=== PATIENT | male | born 1960 | race African-American/Black ===

== ENCOUNTER 2017-01-11 11:11 | Emergency (ER) ==
[2017-01-11 11:18] VITALS: BP 172/113; TEMP 98.9; BMI 30.4
--- NOTE | 2017-01-11 12:20 | ED.PDOC ---
General ED Provider: Dr. OSCAR YATES Chief Complaint: Extremity Swelling/Pain Stated Complaint: LEFT KNEE PAIN Time Seen by Physician: 11:12 Information Source: Patient Exam Limitations: No limitations [facility] Nursing and Triage Documentation Reviewed and Agree: Yes Musculoskeletal Complaint Exam - Lower Extremity Complaint/Exam Location of Pain: Reports: Left, Knee Mechanism of Injury: Reports: Trauma Onset/Duration: 1 DAY Symptoms Are: Still present Initial Severity: Moderate Current Severity: Mild Location: Reports: Discrete Character: Reports: Aching Alleviating: Reports: Rest, Position Aggravating: Reports: Movement Able to Bear Weight: Yes Associated Signs and Symptoms: Denies: Swelling, Redness, Bruising, Fever, Weakness, Numbness, Tingling DVT Risk Factors: Reports: None Septic Arthritis Risk Factors: Reports: None Related Surgical History: Reports: None Differential Diagnoses: Fracture, Strain, Sprain Review of Systems - Review Of Systems Constitutional: Reports: No symptoms Eyes: Reports: No symptoms Ears, Nose, Mouth, Throat: Reports: No symptoms Respiratory: Reports: No symptoms Cardiac: Reports: No symptoms GI: Reports: No symptoms : Reports: No symptoms Musculoskeletal: Reports: Joint pain (LEFT KNEE ) Skin: Reports: No symptoms Neurological: Reports: No symptoms Endocrine: Reports: No symptoms Hematologic/Lymphatic: Reports: No symptoms All Other Systems: Reviewed and Negative Past Medical History - Past Medical History Previously Healthy: No Endocrine: Reports: Dyslipidemia Cardiovascular: Reports: Hypertension Respiratory: Reports: COPD, Asthma Hematological: Reports: None Gastrointestinal: Reports: None Genitourinary: Reports: None Neuro/Psych: Reports: Migraine, Anxiety, Depression Musculoskeletal: Reports: Arthritis, Back Pain, Joint Pain (shoulder pain Rotator cuff ) Cancer: Reports: None Other Pertinent Past Medical History: sleep apnea - Surgical History General Surgical History: Reports: Appendectomy - Family History Family History: Reports: Hypertension - Social History Smoking Status: Current every day smoker, Light tobacco smoker Hx Substance Use: No Alcohol Screening: Occasionally Physical Exam - Physical Exam Appearance: Well-appearing, No pain distress, Well-nourished Eyes: TOM, EOMI, Conjunctiva clear ENT: Ears normal, Nose normal, Oropharynx normal Respiratory: Airway patent, Breath sounds clear, Breath sounds equal, Respirations nonlabored Cardiovascular: RRR, Pulses normal, No rub, No murmur GI/: Soft, Nontender, No masses, Bowel sounds normal, No Organomegaly Musculoskeletal: Normal strength, ROM intact, No edema, No calf tenderness Skin: Warm, Dry, Normal color Neurological: Sensation intact, Motor intact, Reflexes intact, Cranial nerves intact, Alert, Oriented Psychiatric: Affect appropriate, Mood appropriate Interpretation - Radiology Interpretation Radiology Interpretation By: Radiologist Critical Care Note - Critical Care Note Total Time (mins): 0 Course - Course Orders, Labs, Meds: Orders Category Date Time Status KNEE, LEFT 4 VIEWS Stat RADS 01/11/17 11:34 Taken Vital Signs: Temp Pulse Resp BP Pulse Ox 01/11/17 11:12 98.9 F 108 H 20 172/113 H 98 Departure - Departure Time of Disposition: 12:22 Disposition: HOME SELF-CARE Discharge Problem: Knee pain, acute Qualifiers: Laterality: left Qualifier Code: (M25.562) Pain in left knee Instructions: Knee Pain (ED), Arthralgia (ED) Condition: Good Pt referred to PMD for follow-up: No Additional Instructions: Please call your Family Physician as soon as possible to schedule a follow-up appointment. Allergies/Adverse Reactions: Allergies onion Allergy (Severe, Verified 01/11/17 11:19) Anaphylaxis Coconut Adverse Reaction (Verified 01/11/17 11:19) venom-honey bee [bee venom (honey bee)] Adverse Reaction (Verified 01/11/17 11: 19) venom-wasp [wasp venom] Adverse Reaction (Verified 01/11/17 11:19) Home Medications: Ambulatory Orders Albuterol Sulfate 0.083% Neb [Albuterol 0.083% Neb] 1 vial NEB RTQ6H 09/26/15 Atorvastatin Calcium [Lipitor] 20 mg PO BEDTIME 09/26/15 Cyclobenzaprine HCl [Flexeril] 10 mg PO TID 09/26/15 Metoprolol Tartrate 50 mg PO BID 09/26/15 Sumatriptan Succinate [Imitrex] 50 mg PO DAILY PRN 12/17/15 Gabapentin [Neurontin] 200 mg PO TID 05/08/16 Fluticasone Propionate 110 Mcg [Flovent Hfa 110 Mcg] 1 puff IH BID 07/24/16 Losartan Potassium 100 mg PO DAILY #30 tablet 07/26/16 Hydrocodone/Acetaminophen [[place] 7.5-325 Tablet] 1 tab PO Q6HR PRN #12 tablet Potassium Chloride 20 meq PO DAILY 08/24/16 Hydrocodone/Acetaminophen [[place] 5-325 Tablet] 1 each PO Q6HR PRN #4 tablet
--- NOTE | 2017-01-11 12:34 | DI ---
Examination: Four radiographic images of the left knee. Comparison: None available. Reason for study: Pain. FINDINGS: No acute fracture or dislocation. The joint space is relatively well maintained. There is no large joint effusion. Mild degenerative disease with patellar osteophytes. Impression: No acute fracture or dislocation is seen within the left knee.
== END 2017-01-11 12:41 | disposition home or self-care (01) ==
LOC: ED 11:11
DX: M25.562 Pain in left knee (principal); F17.210 Nicotine dependence, cigarettes, uncomplicated
CPT/HCPCS: 99282

== ENCOUNTER 2017-02-07 01:00 | Emergency (ER) | payer OTHER ==
[2017-02-07] MEDS ORDERED: DUONEB NEB STA (01:03)
[2017-02-07] MEDS ORDERED: SOLU-MEDROL 125 MG IVP STA (01:03)
--- NOTE | 2017-02-07 01:07 | ED.PDOC ---
General ED Provider: Dr. MORAIMA DUTTA Stated Complaint: Patient brought from the group home, for the shortness of breath, wheezing, Time Seen by Physician: 01:04 Nursing and Triage Documentation Reviewed and Agree: Yes Respiratory Complaint Exam - Asthma Complaint/Exam Symptoms Are: Still present Timing: Constant Initial Severity: Severe Current Severity: Moderate Character: Reports: Wheezing, Non-productive cough Aggravating: Reports: Weather change, URI, Allergens Alleviating: Reports: None Associated Signs and Symptoms: Reports: SOA. Denies: Fever, Chest pain, Edema, Calf pain, URI, Sinus infection, Rapid breathing, Labored breathing Related History: Reports: Similar episode Related Surgical History: Reports: None Status Asthmaticus Risk Factors: Reports: Rx non-compliance, Prior ICU admit, Prior Intubation Current Asthma Medication Usage: Yes (proair) Recent Antibiotics: No Respiratory Distress: Severe Accessory Muscle Use: Yes Retractions: Nasal Flaring Diminished Breath Sounds: No Prolonged Expiratory Phase: Yes Unable to Speak Full Sentences: Yes Fatigue Present: No Differential Diagnoses: Acute Asthma, Pneumonia Review of Systems - Review Of Systems Constitutional: Reports: Malaise, Weakness Eyes: Reports: No symptoms Ears, Nose, Mouth, Throat: Reports: No symptoms Respiratory: Reports: Cough, Short of air, Wheezing Cardiac: Reports: No symptoms GI: Reports: No symptoms : Reports: No symptoms Musculoskeletal: Reports: No symptoms Skin: Reports: No symptoms Neurological: Reports: No symptoms Endocrine: Reports: No symptoms Hematologic/Lymphatic: Reports: No symptoms All Other Systems: Reviewed and Negative Past Medical History - Past Medical History Previously Healthy: No Endocrine: Reports: Dyslipidemia Cardiovascular: Reports: Hypertension Respiratory: Reports: COPD, Asthma Hematological: Reports: None Gastrointestinal: Reports: None Genitourinary: Reports: None Neuro/Psych: Reports: Migraine, Anxiety, Depression Musculoskeletal: Reports: Arthritis, Back Pain, Joint Pain (shoulder pain Rotator cuff ) Cancer: Reports: None Other Pertinent Past Medical History: sleep apnea - Surgical History General Surgical History: Reports: Appendectomy - Family History Family History: Reports: Hypertension - Social History Smoking Status: Current every day smoker, Light tobacco smoker Hx Substance Use: No Alcohol Screening: Occasionally Physical Exam - Physical Exam Appearance: Ill-appearing, Obese Eyes: TOM, EOMI, Conjunctiva clear ENT: Ears normal, Nose normal, Oropharynx normal Respiratory: Airway patent, Breath sounds diminished, Crackles, Wheezes Cardiovascular: RRR, Pulses normal, No rub, No murmur GI/: Soft, Nontender, No masses, Bowel sounds normal, No Organomegaly Musculoskeletal: Normal strength, ROM intact, No edema, No calf tenderness Skin: Warm, Dry, Normal color Neurological: Sensation intact, Motor intact, Reflexes intact, Cranial nerves intact, Alert, Oriented Psychiatric: Affect appropriate, Mood appropriate Critical Care Note - Critical Care Note Total Time (mins): 0 Course - Course Orders, Labs, Meds: Orders Category Date Time Status NEBULIZER TREATMENT Stat CARDIO 02/07/17 01:03 Completed B-TYPE NATRIURETIC PEPTIDE Stat LAB 02/07/17 01:03 Ordered CBC W/ AUTO DIFF Stat LAB 02/07/17 01:03 Ordered COMPREHENSIVE METABOLIC PANEL Stat LAB 02/07/17 01:03 Ordered CREATINE KINASE Stat LAB 02/07/17 01:03 Ordered D-DIMER Stat LAB 02/07/17 01:03 Ordered TROPONIN I Stat LAB 02/07/17 01:03 Ordered Ipratropium/Albuterol Neb [Duoneb] MEDS 02/07/17 01:03 Discontinued 1 vial NEB ONCE STA Methylprednisolone Sod Succ/Pf [Solu-Medrol 125 mg] MEDS 02/07/17 01:03 Discontinued 125 mg IVP ONCE STA CHEST, 1V AP ONLY Stat RADS 02/07/17 01:03 Taken Medications Discontinued Medications Generic Name Dose Route Start Last Admin Trade Name Freq PRN Reason Stop Dose Admin Albuterol/Ipratropium 1 vial 02/07/17 01:03 02/07/17 01:14 Duoneb NEB 02/07/17 01:04 1 vial ONCE STA Administration Methylprednisolone Sodium Succinate 125 mg 02/07/17 01:03 02/07/17 01:11 Solu-Medrol 125 Mg IVP 02/07/17 01:04 125 mg ONCE STA Administration Vital Signs: Temp Pulse Resp BP Pulse Ox 02/07/17 01:01 97.2 F L 100 H 36 H 137/101 H 84 L Departure - Departure Time of Disposition: 02:20 Disposition: HOME SELF-CARE Discharge Problem: Asthma exacerbation Instructions: Asthma (ED) Condition: Stable Pt referred to PMD for follow-up: Yes Additional Instructions: CONTINUE PROVENTIL PRN NO SMOKING. Prescriptions: Cephalexin [Keflex] 500 mg PO Q12HR #20 capsule Methylprednisolone [Medrol Dosepak] 4 mg PO DIRECTED #1 pkg Allergies/Adverse Reactions: Allergies onion Allergy (Severe, Verified 02/07/17 01:11) Anaphylaxis Coconut Adverse Reaction (Verified 02/07/17 01:11) venom-honey bee [bee venom (honey bee)] Adverse Reaction (Verified 02/07/17 01: 11) venom-wasp [wasp venom] Adverse Reaction (Verified 02/07/17 01:11) Home Medications: Ambulatory Orders Albuterol Sulfate 0.083% Neb [Albuterol 0.083% Neb] 1 vial NEB RTQ6H 09/26/15 Atorvastatin Calcium [Lipitor] 20 mg PO BEDTIME 09/26/15 Cyclobenzaprine HCl [Flexeril] 10 mg PO TID 09/26/15 Metoprolol Tartrate 50 mg PO BID 09/26/15 Sumatriptan Succinate [Imitrex] 50 mg PO DAILY PRN 12/17/15 Gabapentin [Neurontin] 200 mg PO TID 05/08/16 Fluticasone Propionate 110 Mcg [Flovent Hfa 110 Mcg] 1 puff IH BID 07/24/16 Losartan Potassium 100 mg PO DAILY #30 tablet 07/26/16 Hydrocodone/Acetaminophen [[place] 7.5-325 Tablet] 1 tab PO Q6HR PRN #12 tablet Potassium Chloride 20 meq PO DAILY 08/24/16 Hydrocodone/Acetaminophen [[place] 5-325 Tablet] 1 each PO Q6HR PRN #4 tablet Cephalexin [Keflex] 500 mg PO Q12HR #20 capsule 02/07/17 Methylprednisolone [Medrol Dosepak] 4 mg PO DIRECTED #1 pkg 02/07/17 Disposition Discussed With: Patient
[2017-02-07 01:12] VITALS: BP 137/101; TEMP 97.2; BMI 33.2
[2017-02-07 01:37] LABS: BASOPHILS # (AUTO) 0.1 K/uL (0-0.2); BASOPHILS % (AUTO) 0.7 % (0.0-3.0); EOSINOPHILS # (AUTO) 0.3 K/ul (0.0-0.7); EOSINOPHILS % (AUTO) 3.5 % (0.0-7.0); HEMATOCRIT 41.3 % (42.0-52.0); HEMOGLOBIN 14.3 g/dl (14.0-18.0); IMMATURE GRANULOCYTE % (AUTO) 0.7 % (0.0-5.0); LYMPHOCYTES % (AUTO) 44.1 (10.0-50.0); MEAN CORPUSCULAR HGB CONC 34.6 (31.8-35.4); MEAN CORPUSCULAR VOLUME 98.3 fl (80.0-94.0); MONOCYTES # (AUTO) 1.4 K/uL (0.4-2.0); MONOCYTES % (AUTO) 15.1 (0-10); NEUTROPHILS # (AUTO) 3.2 K/ul (2.0-6.9); NEUTROPHILS % (AUTO) 35.9; PLATELET COUNT 238 10^3/uL (140-440); WHITE BLOOD COUNT 8.97 K/ul (4.2-10.2)
[2017-02-07 02:08] LABS: ALANINE AMINOTRANSFERASE 48 U/L (12-78); ALBUMIN 3.8 g/dL (3.4-5.0); ALBUMIN/GLOBULIN RATIO 1.09; ALKALINE PHOSPHATASE 77 U/L (50-136); ANION GAP 15.1; ASPARTATE AMINO TRANSFERASE 35 U/L (15-37); BILIRUBIN,TOTAL 0.38 mg/dL (0.00-1.20); BLOOD UREA NITROGEN 17 mg/dL (7-18); BUN/CREATININE RATIO 13.38; CALCIUM 9.3 mg/dL (8.2-10.2); CARBON DIOXIDE 28 mmol/L (21-32); CHLORIDE 102 mmol/L (98-107); CREATINE KINASE 457 U/L; CREATINE KINASE MB 1.5 ng/ml (0.0-3.6); CREATININE 1.27 mg/dL (0.60-1.10); GLUCOSE 202 mg/dL (70-100); POTASSIUM 3.1 mmol/L (3.5-5.1); SODIUM 142 mmol/L (136-145); TOTAL PROTEIN 7.3 g/dL (6.4-8.2)
[2017-02-07] MEDS ORDERED: K-DUR PO STA (02:32)
--- NOTE | 2017-02-07 07:08 | DI ---
EXAM: Chest one view HISTORY: Shortness of breath COMPARISON: 07/24/2016 TECHNIQUE: Single view of the chest was performed FINDINGS: Mild left basilar subsegmental atelectasis. No airspace consolidation. There is no pleu ral effusion or pneumothorax. The heart is normal in size. The mediastinal contour is normal. The re are no acute abnormalities of the bones. IMPRESSION: Mild left basilar subsegmental atelectasis. Otherwise, no acute cardiopulmonary proces s.
== END 2017-02-07 02:41 | disposition home or self-care (01) ==
LOC: ED 01:00
DX: J45.901 Unspecified asthma with (acute) exacerbation (principal); F17.210 Nicotine dependence, cigarettes, uncomplicated; Z79.899 Other long term (current) drug therapy
CPT/HCPCS: 36415; 80053; 82550; 82553; 83880; 84484; 85025; 85379; 93005; 93010; 94640; 96375; 99284

== ENCOUNTER 2017-03-06 13:20 | Outpatient (CLI) ==
[2013-05-24 11:45] VITALS: TEMP 98.1
[2017-03-06 14:13] LABS: ALBUMIN 4.1 g/dL (3.4-5.0); ANION GAP 14.6; BILIRUBIN,DIRECT 0.31 mg/dL (0.00-0.30); BILIRUBIN,TOTAL 0.8 mg/dL (0.00-1.20); CALCIUM 9.8 mg/dL (8.2-10.2); CREATININE 1.25 mg/dL (0.60-1.10); POTASSIUM 3.6 mmol/L (3.5-5.1); TOTAL PROTEIN 7.8 g/dL (6.4-8.2)
== END 2017-03-06 13:21 | disposition home or self-care (01) ==
LOC: LAB 13:20
PROVIDERS: ATTEND Pain Medicine Interventional Pain Medicine
DX: Z51.81 Encounter for therapeutic drug level monitoring (principal); Z79.891 Long term (current) use of opiate analgesic; F19.20 Other psychoactive substance dependence, uncomplicated; S83.231D Complex tear of medial meniscus, current injury, right knee, subsequent encounter; M25.561 Pain in right knee
CPT/HCPCS: 36415; 80048; 80076

== ENCOUNTER 2017-03-24 07:20 | Outpatient (CLI) ==
[2013-05-24 11:45] VITALS: TEMP 98.1
--- NOTE | 2017-03-24 10:58 | CT ---
EXAM: CT of the soft tissue neck with contrast History: Palpable abnormality at the base of the skull. Technique: Multiplanar CT images through the soft tissue neck were obtained following administratio n of IV contrast Findings: Orbits are intact. The visualized intracranial contents demonstrate no acute findings. No parotid inflammation. No parotid masses. Submandibular glands are not inflamed. No peritonsill ar inflammation. Mild mucosal thickening of the left maxillary sinus. Mastoid air cells are genera lly clear. No acute osseous abnormalities. Epiglottis is not thickened. No discrete thyroid nodul es identified. The visualized upper lungs are free of consolidation. There is paraseptal emphysema seen within the right lung apex. No abnormalities are seen in the region of interest of the posterior neck. Small scattered neck lym ph nodes. Impression: No acute or significant findings.
== END 2017-03-24 07:21 | disposition home or self-care (01) ==
LOC: RAD 07:20
PROVIDERS: ATTEND Nurse Practitioner Family
DX: R22.1 Localized swelling, mass and lump, neck (principal)

== ENCOUNTER 2017-03-25 11:25 | Emergency (ER) ==
[2017-03-25 11:32] VITALS: BP 113/77; TEMP 98.8; BMI 30.7
[2017-03-25] MEDS ORDERED: DUONEB NEB STA (12:11)
[2017-03-25] MEDS ORDERED: TORADOL IM STA (12:11)
--- NOTE | 2017-03-25 12:52 | ED.PDOC ---
General ED Provider: Dr. LUCIO SHEPPARD Chief Complaint: Non-specific Complaint Stated Complaint: patient states he had surgery on left knee on monday. patient c/o swelling to right lower leg. patient states they told him it would be swollen for a couple days. patient states he is waiting for a call back from his surgeon. Time Seen by Physician: 11:45 Mode of Arrival: Walk-In Information Source: Patient Exam Limitations: No limitations [facility] and T[facility] Documentation Reviewed and Agree: Yes Review of Systems - Review Of Systems Constitutional: Reports: No symptoms Eyes: Reports: No symptoms Ears, Nose, Mouth, Throat: Reports: No symptoms Respiratory: Reports: No symptoms Cardiac: Reports: No symptoms GI: Reports: No symptoms : Reports: No symptoms Musculoskeletal: Reports: Joint pain (swelling on the right, improved with removal of zainab wrap ) Skin: Reports: No symptoms Neurological: Reports: No symptoms Endocrine: Reports: No symptoms Hematologic/Lymphatic: Reports: No symptoms All Other Systems: Reviewed and Negative Past Medical History - Past Medical History Previously Healthy: No Endocrine: Reports: Dyslipidemia Cardiovascular: Reports: Hypertension Respiratory: Reports: COPD, Asthma Hematological: Reports: None Gastrointestinal: Reports: None Genitourinary: Reports: None Neuro/Psych: Reports: Migraine, Anxiety, Depression Musculoskeletal: Reports: Arthritis, Back Pain, Joint Pain (shoulder pain Rotator cuff ) Cancer: Reports: None Other Pertinent Past Medical History: sleep apnea - Surgical History General Surgical History: Reports: Appendectomy - Family History Family History: Reports: Hypertension - Social History Smoking Status: Current every day smoker, Light tobacco smoker Hx Substance Use: No Alcohol Screening: Occasionally Physical Exam - Physical Exam Appearance: Well-appearing, Well-nourished Ill-appearing: Mild Pain Distress: Moderate Eyes: Conjunctiva clear Neck: Supple Respiratory: Airway patent, Breath sounds clear, Breath sounds equal, Respirations nonlabored Cardiovascular: RRR, Pulses normal, No rub, No murmur GI/: Soft, Nontender, No masses, Bowel sounds normal, No Organomegaly Musculoskeletal: Limited ROM, Edema Skin: Warm, Dry Neurological: Sensation intact, Motor intact, Reflexes intact, Cranial nerves intact, Alert, Oriented Psychiatric: Anxious Critical Care Note - Critical Care Note Total Time (mins): 0 Course - Course Orders, Labs, Meds: Orders Category Date Time Status NEBULIZER TREATMENT Stat CARDIO 03/25/17 12:11 Completed Ipratropium/Albuterol Neb [Duoneb] MEDS 03/25/17 12:11 Discontinued 1 vial NEB ONCE STA Ketorolac Tromethamine [Toradol] MEDS 03/25/17 12:11 Discontinued 60 mg IM ONCE STA Medications Discontinued Medications Generic Name Dose Route Start Last Admin Trade Name Freq PRN Reason Stop Dose Admin Albuterol/Ipratropium 1 vial 03/25/17 12:11 03/25/17 12:30 Duoneb NEB 03/25/17 12:12 1 vial ONCE STA Administration Ketorolac Tromethamine 60 mg 03/25/17 12:11 03/25/17 12:30 Toradol IM 03/25/17 12:12 60 mg ONCE STA Administration Vital Signs: Temp Pulse Resp BP Pulse Ox 03/25/17 11:25 98.8 F 96 H 16 113/77 94 L Departure - Departure Time of Disposition: 12:53 Disposition: HOME SELF-CARE Discharge Problem: Postoperative pain of right knee Instructions: Swollen Knee Joint (ED), Knee Pain (ED), Meniscus Tear (ED) Condition: Stable Pt referred to PMD for follow-up: Yes Additional Instructions: Keep Leg elevated Follow up with Your Orthopedic doctor in 3 days Continue home Pain medications Allergies/Adverse Reactions: Allergies onion Allergy (Severe, Verified 03/25/17 11:30) Anaphylaxis Coconut Adverse Reaction (Verified 03/25/17 11:30) venom-honey bee [bee venom (honey bee)] Adverse Reaction (Verified 03/25/17 11: 30) venom-wasp [wasp venom] Adverse Reaction (Verified 03/25/17 11:30) Home Medications: Ambulatory Orders Atorvastatin Calcium [Lipitor] 20 mg PO BEDTIME 09/26/15 Cyclobenzaprine HCl [Flexeril] 10 mg PO TID 09/26/15 Metoprolol Tartrate 50 mg PO BID 09/26/15 Losartan Potassium 100 mg PO DAILY #30 tablet 07/26/16 Budesonide/Formoterol Fumarate [Symbicort 160-4.5 Mcg Inhaler] 10.2 gm IH DAILY 03/20/17 Epinephrine 0.3 mg IJ PRN PRN 03/20/17 Fluticasone Propionate [Flovent Hfa] 10.6 gm IH DAILY 03/20/17 Imitrex 25 mg PO PRN PRN 03/20/17 Albuterol Sulfate 0.083% Neb [Albuterol 0.083% Neb] 1 vial NEB PRN PRN 03/25/17 Disposition Discussed With: Patient
== END 2017-03-25 13:03 | disposition home or self-care (01) ==
LOC: ED 11:25
DX: G89.18 Other acute postprocedural pain (principal); M25.561 Pain in right knee; M79.89 Other specified soft tissue disorders; F17.210 Nicotine dependence, cigarettes, uncomplicated
CPT/HCPCS: 94640; 96372; 99283

== ENCOUNTER 2017-04-17 09:58 | Emergency (ER) ==
[2017-04-17 09:58] VITALS: BMI 30.7
[2017-04-17 10:03] VITALS: BP 126/51; TEMP 98.7
[2017-04-17] MEDS ORDERED: SOLU-MEDROL 125 MG IVP STA (10:09)
[2017-04-17] MEDS ORDERED: DUONEB NEB STA (10:09)
[2017-04-17] MEDS ORDERED: DUONEB NEB ONE (10:10)
--- NOTE | 2017-04-17 10:10 | ED.PDOC ---
General ED Provider: Dr. CINTHYA LEE JR Chief Complaint: Cough Stated Complaint: onset headach with cough at 0500 this am--coughing worsened -- now has low pitches audible wheezes with dimiminished breath sound[ End ]AFTER 0500 98.7 108 24 97% 126/51 07/06 227# Time Seen by Physician: 10:10 Mode of Arrival: Walk-In Information Source: Patient Exam Limitations: Clinical condition Nursing and Triage Documentation Reviewed and Agree: No Review of Systems - Review Of Systems Constitutional: Reports: Malaise, Weakness Eyes: Reports: Pain Ears, Nose, Mouth, Throat: Reports: Ear pain Respiratory: Reports: Short of air, Wheezing Neurological: Reports: Headache (left) All Other Systems: Other Past Medical History - Past Medical History Previously Healthy: No Endocrine: Reports: Dyslipidemia Cardiovascular: Reports: Hypertension Respiratory: Reports: COPD, Asthma Hematological: Reports: None Gastrointestinal: Reports: None Genitourinary: Reports: None Neuro/Psych: Reports: Migraine, Anxiety, Depression Musculoskeletal: Reports: Arthritis, Back Pain, Joint Pain (shoulder pain Rotator cuff ) Cancer: Reports: None Other Pertinent Past Medical History: sleep apnea - Surgical History General Surgical History: Reports: Appendectomy, Orthopedic (2 bad disks in neck //scope of left knee with repair of the meniscous and cyst removed from back of knee 03/22/17) - Family History Family History: Reports: Hypertension - Social History Smoking Status: Current every day smoker, Light tobacco smoker Hx Substance Use: No Alcohol Screening: Occasionally Physical Exam - Physical Exam Appearance: Ill-appearing Ill-appearing: Moderate Eyes: TOM, EOMI, Conjunctiva clear ENT: Ears normal, Nose normal, Oropharynx normal Neck: Supple Respiratory: Airway patent, Breath sounds diminished, Wheezes Cardiovascular: RRR, Pulses normal, No rub, No murmur GI/: Soft, Nontender, No masses, Bowel sounds normal, No Organomegaly Musculoskeletal: Normal strength, ROM intact, No edema, No calf tenderness Skin: Warm, Dry, Normal color Neurological: Sensation intact, Motor intact, Reflexes intact, Cranial nerves intact, Alert, Oriented Critical Care Note - Critical Care Note Total Time (mins): 0 Course - Course Hematology/Chemistry: 04/17/17 10:25 04/17/17 10:25 Orders, Labs, Meds: Lab Review 04/17/17 04/17/17 10:07 10:25 WBC 7.50 RBC 4.26 L Hgb 14.2 Hct 40.2 L MCV 94.4 H MCH 33.3 H MCHC 35.3 RDW Coeff of Angélica 12.9 Plt Count 311 Immature Gran % (Auto) 0.1 Neut % (Auto) 58.0 Lymph % (Auto) 30.0 Ness % (Auto) 8.4 Eos % (Auto) 2.8 Baso % (Auto) 0.7 Immature Gran # (Auto) 0.0 Neut # 4.4 Lymph # 2.3 Ness # 0.6 Eos # 0.2 Baso # 0.1 D-Dimer (Manual) 463.11 Puncture Site Lbrach O2 Saturation 97.0 ABG pH 7.553 H* ABG pCO2 23.7 L ABG pO2 79.0 L ABG HCO3 20.9 L ABG Total CO2 22 ABG Base Excess -1 FiO2 % 21.0 Sodium 138 Potassium 3.2 L Chloride 101 Carbon Dioxide 22 Anion Gap 18.2 BUN 14 Creatinine 1.34 H Estimated GFR (MDRD) 67.00 BUN/Creatinine Ratio 10.44 Glucose 114 H Calcium 10.4 H Total Bilirubin 0.78 AST 14 L ALT 23 Alkaline Phosphatase 66 Total Creatine Kinase 73 Troponin I 0.0100 B-Natriuretic Peptide 11 Total Protein 7.9 Albumin 4.1 Globulin 3.8 Albumin/Globulin Ratio 1.08 Procalcitonin 0.06 Orders Category Date Time Status ABG DRAW REQUEST Stat CARDIO 04/17/17 10:07 Completed EKG-(ED ONLY) Stat CARDIO 04/17/17 10:06 Completed EKG-(ED ONLY) Stat CARDIO 04/17/17 10:27 Completed NEBULIZER TREATMENT Stat CARDIO 04/17/17 10:09 Completed ED APPLY O2 .ONCE EMERGENCY 04/17/17 10:06 Active ED BOW REPAIRER CUSTOM APPLIED .ONCE EMERGENCY 04/17/17 10:06 Active ED IV/MEDIPORT/POWERPORT .ONCE EMERGENCY 04/17/17 10:06 Active ABG Stat LAB 04/17/17 10:07 Completed B-TYPE NATRIURETIC PEPTIDE Stat LAB 04/17/17 10:25 Completed BLOOD CULTURE Stat LAB 04/17/17 10:25 Received CBC W/ AUTO DIFF Stat LAB 04/17/17 10:25 Completed COMPREHENSIVE METABOLIC PANEL Stat LAB 04/17/17 10:25 Completed CREATINE KINASE Stat LAB 04/17/17 10:25 Completed D-DIMER Stat LAB 04/17/17 10:25 Completed PROCALCITONIN Stat LAB 04/17/17 10:25 Completed TROPONIN I Stat LAB 04/17/17 10:25 Completed 0.9 % Sodium Chloride [Saline Flush] MEDS 04/17/17 10:06 Discontinued 1 syr IVF PRN PRN Ipratropium/Albuterol Neb [Duoneb] MEDS 04/17/17 10:10 Discontinued 1 vial NEB .STK-MED ONE Ipratropium/Albuterol Neb [Duoneb] MEDS 04/17/17 10:09 Discontinued 1 vial NEB ONCE STA Lorazepam Inj [Ativan] MEDS 04/17/17 10:13 Discontinued 1 mg IVP ONCE STA Methylprednisolone Sod Succ/Pf [Solu-Medrol 125 mg] MEDS 04/17/17 10:09 Discontinued 125 mg IVP ONCE STA CHEST, 1V AP ONLY Stat RADS 04/17/17 10:28 Completed Medications Discontinued Medications Generic Name Dose Route Start Last Admin Trade Name Freq PRN Reason Stop Dose Admin Albuterol/Ipratropium 1 vial 04/17/17 10:09 04/17/17 10:20 Duoneb NEB 04/17/17 10:10 Not Given ONCE STA Lorazepam 1 mg 04/17/17 10:13 04/17/17 10:47 Ativan IVP 04/17/17 10:14 1 mg ONCE STA Administration Methylprednisolone Sodium Succinate 125 mg 04/17/17 10:09 04/17/17 10:31 Solu-Medrol 125 Mg IVP 04/17/17 10:10 125 mg ONCE STA Administration Sodium Chloride 1 syr 04/17/17 10:06 Saline Flush IVF PRN PRN To flush IV Vital Signs: Temp Pulse Resp BP Pulse Ox 04/17/17 09:58 98.7 F 108 H 24 126/51 L 97 Departure - Departure Time of Disposition: 13:40 Disposition: HOME SELF-CARE Discharge Problem: COPD (chronic obstructive pulmonary disease), Headache Instructions: Acute Headache (ED), COPD (Chronic Obstructive Pulmonary Disease ) (ED) Condition: Good Pt referred to PMD for follow-up: Yes Additional Instructions: any antihistamine daily for allergies increase potassium three extra servings fruit and vegetables for three days try added magnesium 400mg daily avoid tobacco Robitussin DM or Robitussin AC(generic OK) for cough return if fever over 101.0 recheck PMD one week Prescriptions: Guaifenesin/Codeine Phosphate [Robitussin AC Syrup] 10 ml PO Q6H PRN #240 ml PRN Reason: Cough Loratadine/Pseudoephedrine [Claritin-D 12 Hour Tablet] 1 each PO BID PRN #60 tab.er.12h PRN Reason: Allergy Symptoms Magnesium Oxide [Mag-Ox] 400 mg PO DAILY #30 tablet Allergies/Adverse Reactions: Allergies onion Allergy (Severe, Verified 04/17/17 10:05) Anaphylaxis [place] Adverse Reaction (Verified 04/17/17 10:05) venom-honey bee [bee venom (honey bee)] Adverse Reaction (Verified 04/17/17 10: 05) venom-wasp [wasp venom] Adverse Reaction (Verified 04/17/17 10:05) Home Medications: Ambulatory Orders Atorvastatin Calcium [Lipitor] 20 mg PO BEDTIME 09/26/15 Cyclobenzaprine HCl [Flexeril] 10 mg PO TID 09/26/15 Metoprolol Tartrate 50 mg PO BID 09/26/15 Losartan Potassium 100 mg PO DAILY #30 tablet 07/26/16 Budesonide/Formoterol Fumarate [Symbicort 160-4.5 Mcg Inhaler] 10.2 gm IH DAILY 03/20/17 Epinephrine 0.3 mg IJ PRN PRN 03/20/17 Fluticasone Propionate [Flovent Hfa] 10.6 gm IH DAILY 03/20/17 Imitrex 25 mg PO PRN PRN 03/20/17 Albuterol Sulfate 0.083% Neb [Albuterol 0.083% Neb] 1 vial NEB PRN PRN 03/25/17 Guaifenesin/Codeine Phosphate [Robitussin AC Syrup] 10 ml PO Q6H PRN #240 ml Loratadine/Pseudoephedrine [Claritin-D 12 Hour Tablet] 1 each PO BID PRN #60 tab.er.12h 04/17/17 Magnesium Oxide [Mag-Ox] 400 mg PO DAILY #30 tablet 04/17/17
[2017-04-17] MEDS ORDERED: ATIVAN IVP STA (10:13)
[2017-04-17 10:41] LABS: BASOPHILS # (AUTO) 0.1 K/uL (0-0.2); BASOPHILS % (AUTO) 0.7 % (0.0-3.0); EOSINOPHILS # (AUTO) 0.2 K/ul (0.0-0.7); EOSINOPHILS % (AUTO) 2.8 % (0.0-7.0); HEMATOCRIT 40.2 % (42.0-52.0); HEMOGLOBIN 14.2 g/dl (14.0-18.0); IMMATURE GRANULOCYTE % (AUTO) 0.1 % (0.0-5.0); LYMPHOCYTES # (AUTO) 2.3 K/uL (0.60-3.4); MEAN CORPUSCULAR HEMOGLOBIN 33.3 pg (27.0-31.0); MEAN CORPUSCULAR HGB CONC 35.3 (31.8-35.4); MEAN CORPUSCULAR VOLUME 94.4 fl (80.0-94.0); MONOCYTES # (AUTO) 0.6 K/uL (0.4-2.0); MONOCYTES % (AUTO) 8.4 (0-10); NEUTROPHILS # (AUTO) 4.4 K/ul (2.0-6.9); PLATELET COUNT 311 10^3/uL (140-440); RED BLOOD COUNT 4.26 10^6/ul (4.70-6.10)
--- NOTE | 2017-04-17 10:58 | DI ---
EXAM: Single AP view of the chest HISTORY: Chest pain. COMPARISON: Chest x-ray 02/07/2017 and numerous priors FINDINGS: Cardiomediastinal silhouette is normal. There is no pneumothorax or pleural effusion. Th ere is no consolidation, nodule or mass. The osseous structures are unremarkable. IMPRESSION: No acute cardiopulmonary process.
[2017-04-17 11:04] LABS: ABG BASE EXCESS -1 (-2.0-2.0); ABG HCO3 20.9 (22.0-26.0); ABG PCO2 23.7 mmHg (35-45); ABG PH 7.553 (7.35-7.45)
[2017-04-17 11:04] LABS: ALBUMIN 4.1 g/dL (3.4-5.0); ALBUMIN/GLOBULIN RATIO 1.08; ANION GAP 18.2; BILIRUBIN,TOTAL 0.78 mg/dL (0.00-1.20); BUN/CREATININE RATIO 10.44; CALCIUM 10.4 mg/dL (8.2-10.2); CREATININE 1.34 mg/dL (0.60-1.10); POTASSIUM 3.2 mmol/L (3.5-5.1); TOTAL PROTEIN 7.9 g/dL (6.4-8.2); TROPONIN I 0.01 ng/ml (0.0000-0.4000)
[2017-04-17 11:05] LABS: ABG TCO2 22 (22.0-28.0)
== END 2017-04-17 13:55 | disposition home or self-care (01) ==
LOC: ED 09:58
DX: J44.9 Chronic obstructive pulmonary disease, unspecified (principal); R51 Headache; E78.5 Hyperlipidemia, unspecified; I10 Essential (primary) hypertension; R06.02 Shortness of breath; R06.2 Wheezing; F17.210 Nicotine dependence, cigarettes, uncomplicated; Z79.899 Other long term (current) drug therapy
CPT/HCPCS: 36415; 80053; 82550; 82803; 83880; 84145; 84484; 85025; 85379; 87040; 93005; 93010; 94640; 96374; 96375; 99283

== ENCOUNTER 2017-06-01 00:47 | Inpatient (IN) ==
[2017-06-01] MEDS ORDERED: SOLU-MEDROL 125 MG IVP STA (01:09)
[2017-06-01] MEDS ORDERED: DUONEB NEB ONE (01:10)
[2017-06-01] MEDS ORDERED: DUONEB NEB STA (01:15)
--- NOTE | 2017-06-01 01:21 | ED.PDOC ---
General ED Provider: Dr. LUCIO SHEPPARD Chief Complaint: Shortness of Air Stated Complaint: Patient is a 56 year old male who is brought to ER per [facility] with shortness of air having an Asthma attack. He is reported to have been drinking 2 pints of vodka today. Also has a history of Drug use and has been to the ER Multiple times in the same state. EMS reports that he has been having Apnec episodes x3 prior to arrival. Time Seen by Physician: 01:05 Mode of Arrival: Ambulance Information Source: Patient, EMT Exam Limitations: No limitations Primary Care Provider: MORAIMA NELSON Nursing and Triage Documentation Reviewed and Agree: Yes Respiratory Complaint Exam - Asthma Complaint/Exam Onset/Duration: 20 min Symptoms Are: Still present Timing: Constant Initial Severity: Moderate Character: Reports: Wheezing Aggravating: Reports: Smoke exposure Alleviating: Reports: None Associated Signs and Symptoms: Reports: SOA, Rapid breathing, Labored breathing. Denies: Fever, Chest pain, Edema, Calf pain, URI, Sinus infection Related Surgical History: Reports: None Status Asthmaticus Risk Factors: Reports: Recent steriods, Rx non-compliance Recent Antibiotics: No Respiratory Distress: Severe Accessory Muscle Use: Yes Retractions: Diaphragmatic Diminished Breath Sounds: No Prolonged Expiratory Phase: Yes Unable to Speak Full Sentences: Yes Fatigue Present: No Differential Diagnoses: Acute Asthma, COPD Exacerbation Patient Advised to Stop Smoking: No (solnolant ) Review of Systems - Review Of Systems Constitutional: Reports: Weakness Respiratory: Reports: Cough, Short of air, Wheezing Cardiac: Denies: Chest pain GI: Denies: Nausea, Vomiting Neurological: Reports: Anxiety All Other Systems: Other (LImited due to limited responsiveness.) Past Medical History - Past Medical History Previously Healthy: No Endocrine: Reports: Dyslipidemia Cardiovascular: Reports: Hypertension Respiratory: Reports: COPD, Asthma Hematological: Reports: None Gastrointestinal: Reports: None Genitourinary: Reports: None Neuro/Psych: Reports: Migraine, Anxiety, Depression Musculoskeletal: Reports: Arthritis, Back Pain, Joint Pain (shoulder pain Rotator cuff ) Cancer: Reports: None Other Pertinent Past Medical History: sleep apnea - Surgical History General Surgical History: Reports: Appendectomy, Orthopedic (2 bad disks in neck //scope of left knee with repair of the meniscous and cyst removed from back of knee 03/22/17) - Family History Family History: Reports: Hypertension - Social History Smoking Status: Current every day smoker, Light tobacco smoker Hx Substance Use: No Alcohol Screening: Heavy - Immunizations Tetanus Shot up to Date: No (unknown) Physical Exam - Physical Exam Appearance: Ill-appearing, No pain distress Ill-appearing: Severe Eyes: TOM, EOMI, Conjunctiva clear Neck: Supple Respiratory: Airway patent, Wheezes Cardiovascular: Pulses normal, No rub, No murmur, Tachycardia Musculoskeletal: Normal strength, ROM intact, No edema, No calf tenderness Skin: Warm, Dry, Normal color Neurological: Sensation intact, Motor intact, Cranial nerves intact, Alert, Oriented Psychiatric: Anxious Interpretation - Radiology Interpretation Radiology Interpretation By: Radiologist Radiology Results: Negative Exam Interpreted: Portable CXR - Stubber Rate: Tachy Rhythm: Sinus - EKG Interpretation Time of EKG #1: 01:05 Rate: Tachy Rhythm: Sinus Ectopy: None [place]: [place] ST Segment: Normal Interpretation: Sinus Tachy, Anterior infact age undetermined. Re-Evaluation - Re-Evaluation Time of Re-Evaluation: 02:04 Status: Improved Lungs: Other (Wheezing less that initial) Physician Notification - Case Discussed Physician Notified: Olivia Time of Notification: 03:02 Critical Care Note - Critical Care Note Total Time (mins): 30 Course - Course Hematology/Chemistry: 06/01/17 01:20 06/01/17 01:20 Orders, Labs, Meds: Lab Review 06/01/17 06/01/17 01:15 01:20 WBC 5.63 RBC 3.65 L Hgb 12.1 L Hct 35.1 L MCV 96.2 H MCH 33.2 H MCHC 34.5 RDW Coeff of Angélica 13.1 Plt Count 236 Immature Gran % (Auto) 0.2 Neut % (Auto) 45.8 Lymph % (Auto) 45.3 [place] % (Auto) 6.2 Eos % (Auto) 2.0 Baso % (Auto) 0.5 Immature Gran # (Auto) 0.0 Neut # 2.6 Lymph # 2.6 [place] # 0.4 Eos # 0.1 Baso # 0.0 Puncture Site Lb O2 Saturation 95.0 ABG pH 7.321 L ABG pCO2 38.1 ABG pO2 83.0 L ABG HCO3 19.7 L ABG Total CO2 21 L ABG Base Excess -6 L Jerome Test + FiO2 % 21.0 Sodium 146 H Potassium 3.2 L Chloride 112 H Carbon Dioxide 19 L Anion Gap 18.2 BUN 13 Creatinine 0.98 Estimated GFR (MDRD) 97.00 BUN/Creatinine Ratio 13.26 Glucose 118 H Calcium 8.5 Total Bilirubin 0.27 AST 43 H ALT 38 Alkaline Phosphatase 58 Total Creatine Kinase 1062 CK-MB (CK-2) 4.8 H CK-MB (CK-2) % 0.04423 Troponin I 0.0370 B-Natriuretic Peptide 25 Total Protein 6.9 Albumin 3.8 Globulin 3.1 Albumin/Globulin Ratio 1.23 Orders Category Date Time Status ADMIT PATIENT INPATIENT .TO SCU (MONITORED BED) ADMISSION 06/01/17 02:47 Active ABG DRAW REQUEST Stat CARDIO 06/01/17 01:16 Completed EKG-(ED ONLY) Stat CARDIO 06/01/17 01:16 Completed NEBULIZER TREATMENT Routine CARDIO 06/01/17 02:57 Active NEBULIZER TREATMENT Stat CARDIO 06/01/17 01:16 Completed NEBULIZER TREATMENT Stat CARDIO 06/01/17 02:04 Completed OXYGEN Routine CARDIO 06/01/17 02:47 Active ACTIVITY .Early Mobilization for VTE Prevention CARE 06/01/17 02:56 Active INTAKE & OUTPUT Q8HR CARE 06/01/17 02:47 Active TELEMETRY MONITORING TELE CARE 06/01/17 02:49 Active VITAL SIGNS Q4HR CARE 06/01/17 02:52 Active REGULAR DIET DIETARY 06/01/17 Breakfast Ordered ED APPLY O2 .ONCE EMERGENCY 06/01/17 01:15 Active ED COMPO CONVEYOR OPERATOR APPLIED .ONCE EMERGENCY 06/01/17 01:15 Active ED IV/MEDIPORT/POWERPORT .ONCE EMERGENCY 06/01/17 01:15 Active ABG Stat LAB 06/01/17 01:15 Completed B-TYPE NATRIURETIC PEPTIDE Stat LAB 06/01/17 01:20 Completed CBC W/ AUTO DIFF DAILY@0600 LAB 06/02/17 06:00 Ordered CBC W/ AUTO DIFF DAILY@0600 LAB 06/03/17 06:00 Ordered CBC W/ AUTO DIFF DAILY@0600 LAB 06/04/17 06:00 Ordered CBC W/ AUTO DIFF DAILY@0600 LAB 06/05/17 06:00 Ordered CBC W/ AUTO DIFF DAILY@0600 LAB 06/06/17 06:00 Ordered CBC W/ AUTO DIFF DAILY@0600 LAB 06/07/17 06:00 Ordered CBC W/ AUTO DIFF DAILY@0600 LAB 06/08/17 06:00 Ordered CBC W/ AUTO DIFF DAILY@0600 LAB 06/09/17 06:00 Ordered CBC W/ AUTO DIFF DAILY@0600 LAB 06/10/17 06:00 Ordered CBC W/ AUTO DIFF DAILY@0600 LAB 06/11/17 06:00 Ordered CBC W/ AUTO DIFF DAILY@0600 LAB 06/12/17 06:00 Ordered CBC W/ AUTO DIFF DAILY@0600 LAB 06/13/17 06:00 Ordered CBC W/ AUTO DIFF DAILY@0600 LAB 06/14/17 06:00 Ordered CBC W/ AUTO DIFF DAILY@0600 LAB 06/15/17 06:00 Ordered CBC W/ AUTO DIFF DAILY@0600 LAB 06/16/17 06:00 Ordered CBC W/ AUTO DIFF DAILY@0600 LAB 06/17/17 06:00 Ordered CBC W/ AUTO DIFF DAILY@0600 LAB 06/18/17 06:00 Ordered CBC W/ AUTO DIFF DAILY@0600 LAB 06/19/17 06:00 Ordered CBC W/ AUTO DIFF DAILY@0600 LAB 06/20/17 06:00 Ordered CBC W/ AUTO DIFF Stat LAB 06/01/17 01:20 Completed COMPREHENSIVE METABOLIC PANEL DAILY@0600 LAB 06/02/17 06:00 Ordered COMPREHENSIVE METABOLIC PANEL DAILY@0600 LAB 06/03/17 06:00 Ordered COMPREHENSIVE METABOLIC PANEL DAILY@0600 LAB 06/04/17 06:00 Ordered COMPREHENSIVE METABOLIC PANEL DAILY@0600 LAB 06/05/17 06:00 Ordered COMPREHENSIVE METABOLIC PANEL DAILY@0600 LAB 06/06/17 06:00 Ordered COMPREHENSIVE METABOLIC PANEL DAILY@0600 LAB 06/07/17 06:00 Ordered COMPREHENSIVE METABOLIC PANEL DAILY@0600 LAB 06/08/17 06:00 Ordered COMPREHENSIVE METABOLIC PANEL DAILY@0600 LAB 06/09/17 06:00 Ordered COMPREHENSIVE METABOLIC PANEL DAILY@0600 LAB 06/10/17 06:00 Ordered COMPREHENSIVE METABOLIC PANEL DAILY@0600 LAB 06/11/17 06:00 Ordered COMPREHENSIVE METABOLIC PANEL DAILY@0600 LAB 06/12/17 06:00 Ordered COMPREHENSIVE METABOLIC PANEL DAILY@0600 LAB 06/13/17 06:00 Ordered COMPREHENSIVE METABOLIC PANEL DAILY@0600 LAB 06/14/17 06:00 Ordered COMPREHENSIVE METABOLIC PANEL DAILY@0600 LAB 06/15/17 06:00 Ordered COMPREHENSIVE METABOLIC PANEL DAILY@0600 LAB 06/16/17 06:00 Ordered COMPREHENSIVE METABOLIC PANEL DAILY@0600 LAB 06/17/17 06:00 Ordered COMPREHENSIVE METABOLIC PANEL DAILY@0600 LAB 06/18/17 06:00 Ordered COMPREHENSIVE METABOLIC PANEL DAILY@0600 LAB 06/19/17 06:00 Ordered COMPREHENSIVE METABOLIC PANEL DAILY@0600 LAB 06/20/17 06:00 Ordered COMPREHENSIVE METABOLIC PANEL Stat LAB 06/01/17 01:20 Completed CREATINE KINASE Q8H LAB 06/01/17 08:55 Completed CREATINE KINASE Q8H LAB 06/01/17 16:50 Completed CREATINE KINASE Stat LAB 06/01/17 01:20 Completed TROPONIN I Q8H LAB 06/01/17 08:55 Completed TROPONIN I Q8H LAB 06/01/17 16:50 Completed TROPONIN I Stat LAB 06/01/17 01:20 Completed 0.9 % Sodium Chloride [Saline Flush] MEDS 06/01/17 01:15 Active 1 syr IVF PRN PRN Acetaminophen [Tylenol] MEDS 06/01/17 02:47 Active 650 mg PO Q4H PRN Amlodipine Besylate [Norvasc] MEDS 06/01/17 09:00 Discontinued 5 mg PO BID Atorvastatin Calcium [Lipitor] MEDS 06/01/17 21:00 Active 20 mg PO BEDTIME Budesonide/Formoterol Fumarate [Symbicort 160-4.5 Mcg MEDS 06/01/17 09:00 Discontinued Inhaler] 1 puff IH DAILY Cyclobenzaprine HCl [Flexeril] MEDS 06/01/17 09:00 Active 10 mg PO TID Enoxaparin Sodium [Lovenox] MEDS 06/01/17 09:00 Active 40 mg SUBCUT DAILY Fluticasone Propionate [Flovent Hfa] MEDS 06/01/17 09:00 Discontinued 10.6 gm IH DAILY Guaifenesin/Codeine Phosphate [Robitussin AC Syrup] MEDS 06/01/17 02:58 Active 10 ml PO Q6H PRN Hydrochlorothiazide MEDS 06/01/17 09:00 Active 12.5 mg PO DAILY Ipratropium/Albuterol Neb [Duoneb] MEDS 06/01/17 01:10 Discontinued 1 vial NEB .STK-MED ONE Ipratropium/Albuterol Neb [Duoneb] MEDS 06/01/17 01:15 Discontinued 1 vial NEB ONCE STA Ipratropium/Albuterol Neb [Duoneb] MEDS 06/01/17 02:47 Active 1 vial NEB RTQ2H PRN Ipratropium/Albuterol Neb [Duoneb] MEDS 06/01/17 06:00 Discontinued 1 vial NEB RTQ4H Levalbuterol HCl [Xopenex 1.25 mg] MEDS 06/01/17 02:04 Discontinued 1 vial NEB ONCE STA Loratadine/Pseudoephedrine [Claritin-D 12 Hour Tablet] MEDS 06/01/17 02:58 Active 1 each PO BID PRN Losartan Potassium [Cozaar] MEDS 06/01/17 09:00 Active 100 mg PO DAILY Magnesium Oxide [Mag-Ox] MEDS 06/01/17 09:00 Active 400 mg PO DAILY Methylprednisolone Sod Succ/Pf [Solu-Medrol 125 mg] MEDS 06/01/17 01:09 Discontinued 125 mg IVP ONCE STA Methylprednisolone Sod Succ/Pf [Solu-Medrol 125 mg] MEDS 06/01/17 05:00 Active 125 mg IVP Q8HR Ondansetron HCl/Pf [Zofran 4 mg/2 ml] MEDS 06/01/17 02:47 Active 4 mg IVP Q6H PRN Potassium Chloride in 0.9%NaCl [Sodium Chloride 0.9%- MEDS 06/01/17 03:00 Active KCl 20 Meq] 1,000 ml IV 70 mls/hr RESUSCITATION STATUS Routine OTHERS 06/01/17 02:47 Ordered CHEST, 1V AP ONLY Stat RADS 06/01/17 01:16 Completed Medications Generic Name Dose Route Start Last Admin Trade Name Freq PRN Reason Stop Dose Admin Acetaminophen 650 mg 06/01/17 02:47 Tylenol PO Q4H PRN Fever >101 Acetaminophen/Hydrocodone Bitart 1 tab 06/01/17 17:00 06/01/17 16:38 [place] 7.5-325 PO 1 tab QID ELVIS Administration Albuterol/Ipratropium 1 vial 06/01/17 02:47 06/01/17 04:12 Duoneb NEB 1 vial RTQ2H PRN Administration Wheezing Amlodipine Besylate 5 mg 06/02/17 09:00 Norvasc PO DAILY ELVIS Atorvastatin Calcium 20 mg 06/01/17 21:00 Lipitor PO BEDTIME ELVIS Budesonide/Formoterol Fumarate 1 puff 06/01/17 21:00 Symbicort 160-4.5 Mcg Inhaler IH BID ELVIS Cholecalciferol 2,000 unit 06/01/17 21:00 Vitamin D PO BID [facility] Cyclobenzaprine HCl 10 mg 06/01/17 09:00 06/01/17 14:26 Flexeril PO 10 mg TID ELVIS Administration Enoxaparin Sodium 40 mg 06/01/17 09:00 06/01/17 08:09 Lovenox SUBCUT 40 mg DAILY ELVIS Administration Gabapentin 200 mg 06/01/17 15:00 06/01/17 14:26 Neurontin PO 200 mg TID ELVIS Administration Guaifenesin/Codeine Phosphate 10 ml 06/01/17 02:58 06/01/17 14:26 Robitussin Ac Syrup PO 10 ml Q6H PRN Administration Cough Hydrochlorothiazide 12.5 mg 06/01/17 09:00 06/01/17 08:08 Hydrochlorothiazide PO 12.5 mg DAILY ELVIS Administration Potassium Chloride/Sodium Chloride 1,000 mls @ 70 mls/hr 06/01/17 03:00 06/01 18:06 Sodium Chloride 0.9%-Kcl 20 Meq IV 70 mls/hr .[id number] ELVIS Administration Levalbuterol HCl 1 vial 06/01/17 12:00 06/01/17 17:13 Xopenex 1.25 Mg NEB 1 vial RTQ6H ELVIS Administration Losartan Potassium 100 mg 06/01/17 09:00 06/01/17 08:08 Cozaar PO 100 mg DAILY ELVIS Administration Magnesium Oxide 400 mg 06/01/17 09:00 06/01/17 08:08 Mag-Ox PO 400 mg DAILY ELVIS Administration Methylprednisolone Sodium Succinate 125 mg 06/01/17 05:00 06/01/17 13:10 Solu-Medrol 125 Mg IVP 125 mg Q8HR ELVIS Administration Metoprolol Tartrate 50 mg 06/02/17 09:00 Lopressor PO DAILY ELVIS Non-Formulary Medication 1 each 06/01/17 02:58 Loratadine/Pseudoephedrine [Claritin-D 12 Hour Tablet] PO BID PRN Allergies Non-Formulary Medication 50 mg 06/01/17 17:30 06/01/17 18:07 Diclofenac Sodium [Diclofenac Sodium] PO 50 mg BIDWM ELVIS Administration Ondansetron HCl 4 mg 06/01/17 02:47 Zofran 4 Mg/2 Ml IVP Q6H PRN Nausea / Vomiting Potassium Chloride 20 meq 06/02/17 09:00 K-Dur PO DAILY ELVIS Sodium Chloride 1 syr 06/01/17 01:15 06/01/17 01:05 Saline Flush IVF 1 syr PRN PRN Administration To flush IV Sodium Chloride 1 syr 06/01/17 13:00 06/01/17 13:16 Saline Flush IVF 1 syr Q8HR ELVIS Administration Sumatriptan Succinate 50 mg 06/01/17 12:27 06/01/17 15:32 Imitrex PO 50 mg DAILY PRN Administration HEADACHE Discontinued Medications Generic Name Dose Route Start Last Admin Trade Name Freq PRN Reason Stop Dose Admin Albuterol/Ipratropium 1 vial 06/01/17 01:15 06/01/17 01:12 Duoneb NEB 06/01/17 01:16 Not Given ONCE STA Albuterol/Ipratropium 1 vial 06/01/17 06:00 06/01/17 05:20 Duoneb NEB 1 vial RTQ4H ELVIS Administration Amlodipine Besylate 5 mg 06/01/17 09:00 06/01/17 08:08 Norvasc PO 5 mg BID ELVIS Administration Budesonide/Formoterol Fumarate 1 puff 06/01/17 09:00 06/01/17 09:30 Symbicort 160-4.5 Mcg Inhaler IH 1 puff DAILY ELVIS Administration Levalbuterol HCl 1 vial 06/01/17 02:04 06/01/17 02:15 Xopenex 1.25 Mg NEB 06/01/17 02:05 1 vial ONCE STA Administration Methylprednisolone Sodium Succinate 125 mg 06/01/17 01:09 06/01/17 01:26 Solu-Medrol 125 Mg IVP 06/01/17 01:10 125 mg ONCE STA Administration Metoprolol Tartrate 50 mg 06/01/17 09:00 06/01/17 08:08 Lopressor PO 50 mg BID ELVIS Administration Non-Formulary Medication 10.6 gm 06/01/17 09:00 06/01/17 08:12 Fluticasone Propionate [Flovent Hfa] IH Not Given DAILY [facility] Vital Signs: Temp Pulse Resp BP Pulse Ox 06/01/17 01:23 103 H 26 H 123/75 06/01/17 01:02 98.8 F 107 H 28 H 134/115 H 97 Departure - Departure Time of Disposition: 03:02 Disposition: ADMITTED INPATIENT Discharge Problem: Asthma exacerbation, COPD exacerbation Condition: Critical Pt referred to PMD for follow-up: No Allergies/Adverse Reactions: Allergies onion Allergy (Severe, Verified 06/01/17 01:18) Anaphylaxis [place] Adverse Reaction (Verified 06/01/17 01:18) venom-honey bee [bee venom (honey bee)] Adverse Reaction (Verified 06/01/17 01: 18) venom-wasp [wasp venom] Adverse Reaction (Verified 06/01/17 01:18) Home Medications: Ambulatory Orders Atorvastatin Calcium [Lipitor] 20 mg PO BEDTIME 09/26/15 Cyclobenzaprine HCl [Flexeril] 10 mg PO TID 09/26/15 Metoprolol Tartrate 50 mg PO BID 09/26/15 Budesonide/Formoterol Fumarate [Symbicort 160-4.5 Mcg Inhaler] 10.2 gm IH DAILY 03/20/17 Epinephrine 0.3 mg IJ PRN PRN 03/20/17 Fluticasone Propionate [Flovent Hfa] 10.6 gm IH DAILY 03/20/17 Albuterol Sulfate 0.083% Neb [Albuterol 0.083% Neb] 1 vial NEB PRN PRN 03/25/17 Guaifenesin/Codeine Phosphate [Robitussin AC Syrup] 10 ml PO Q6H PRN #240 ml Loratadine/Pseudoephedrine [Claritin-D 12 Hour Tablet] 1 each PO BID PRN #60 tab.er.12h 04/17/17 Magnesium Oxide [Mag-Ox] 400 mg PO DAILY #30 tablet 04/17/17 Amlodipine Besylate [Norvasc] 5 mg PO DAILY 06/01/17 Cholecalciferol (Vitamin D3) [Vitamin D3] 2,000 unit PO BID 06/01/17 Diclofenac Sodium 50 mg PO BID 06/01/17 Gabapentin [Neurontin] 200 mg PO TID 06/01/17 Hydrocodone/Acetaminophen [Hydrocodon-Acetaminoph 7.5-325] 1 tab PO QID Losartan Potassium [Cozaar] 50 mg PO DAILY 06/01/17 Potassium Chloride [K-Dur] 20 meq PO DAILY 06/01/17 Sumatriptan Succinate [Imitrex] 50 mg PO DAILY PRN 06/01/17 Disposition Discussed With: Patient, Family
[2017-06-01 01:26] LABS: ABG PCO2 38.1 mmHg (35-45); ABG PH 7.321 (7.35-7.45)
[2017-06-01 01:27] LABS: ABG BASE EXCESS -6 (-2.0-2.0); ABG HCO3 19.7 (22.0-26.0); ABG TCO2 21 (22.0-28.0)
[2017-06-01 01:31] LABS: BASOPHILS % (AUTO) 0.5 % (0.0-3.0); EOSINOPHILS # (AUTO) 0.1 K/ul (0.0-0.7); HEMATOCRIT 35.1 % (42.0-52.0); HEMOGLOBIN 12.1 g/dl (14.0-18.0); IMMATURE GRANULOCYTE % (AUTO) 0.2 % (0.0-5.0); LYMPHOCYTES # (AUTO) 2.6 K/uL (0.60-3.4); LYMPHOCYTES % (AUTO) 45.3 (10.0-50.0); MEAN CORPUSCULAR HEMOGLOBIN 33.2 pg (27.0-31.0); MEAN CORPUSCULAR HGB CONC 34.5 (31.8-35.4); MEAN CORPUSCULAR VOLUME 96.2 fl (80.0-94.0); MONOCYTES # (AUTO) 0.4 K/uL (0.4-2.0); MONOCYTES % (AUTO) 6.2 (0-10); NEUTROPHILS # (AUTO) 2.6 K/ul (2.0-6.9); NEUTROPHILS % (AUTO) 45.8; PLATELET COUNT 236 10^3/uL (140-440); RED BLOOD COUNT 3.65 10^6/ul (4.70-6.10); WHITE BLOOD COUNT 5.63 K/ul (4.2-10.2)
--- NOTE | 2017-06-01 01:42 | DI ---
EXAM: Chest, single view 06/01/2017 HISTORY: Shortness of breath COMPARISON: 04/17/2017 FINDINGS / IMPRESSION: Cardiomediastinal contours appear within normal limits. There is no pulmona ry consolidation, effusion or pneumothorax. No acute cardiopulmonary process.
[2017-06-01] MEDS ORDERED: XOPENEX 1.25 MG NEB STA (02:04)
[2017-06-01 02:07] LABS: ALBUMIN 3.8 g/dL (3.4-5.0); ALBUMIN/GLOBULIN RATIO 1.23; ANION GAP 18.2; BILIRUBIN,TOTAL 0.27 mg/dL (0.00-1.20); BUN/CREATININE RATIO 13.26; CALCIUM 8.5 mg/dL (8.2-10.2); CREATININE 0.98 mg/dL (0.60-1.10); POTASSIUM 3.2 mmol/L (3.5-5.1); TOTAL PROTEIN 6.9 g/dL (6.4-8.2); TROPONIN I 0.037 ng/ml (0.0000-0.4000)
[2017-06-01 02:09] LABS: CREATINE KINASE MB 4.8 ng/ml (0.0-3.6)
[2017-06-01] MEDS ORDERED: XOPENEX 1.25 MG NEB ONE (02:15)
[2017-06-01] MEDS ORDERED: DUONEB NEB PRN (02:47)
[2017-06-01] MEDS ORDERED: TYLENOL PO PRN (02:47)
[2017-06-01] MEDS ORDERED: ZOFRAN 4 MG/2 ML IVP PRN (02:47)
[2017-06-01] MEDS ORDERED: LORATADINE PO PRN (02:58)
[2017-06-01] MEDS ORDERED: [UNRECOGNIZED DRUG - OTHER] PO PRN (02:58)
[2017-06-01] MEDS ORDERED: PSEUDOEPHEDRINE PO PRN (02:58)
[2017-06-01] MEDS: SODIUM CHLORIDE 0.9%-KCL 20 MEQ 1,000 ML IV SCH ×2 (03:41→18:06)
[2017-06-01 03:58] VITALS: BMI 31.4
[2017-06-01] MEDS: SOLU-MEDROL 125 MG IVP SCH ×3 (05:05→21:08)
[2017-06-01] MEDS ORDERED: DUONEB NEB SCH (06:00)
[2017-06-01] MEDS: ROBITUSSIN AC SYRUP PO PRN ×2 (07:24→14:26)
[2017-06-01] MEDS: HYDROCHLOROTHIAZIDE PO SCH (08:08)
[2017-06-01] MEDS: FLEXERIL PO SCH ×3 (08:08→20:55)
[2017-06-01] MEDS: COZAAR PO SCH (08:08)
[2017-06-01] MEDS: MAG-OX PO SCH (08:08)
[2017-06-01] MEDS: LOVENOX SUBCUT SCH (08:09)
[2017-06-01] MEDS ORDERED: LOPRESSOR PO SCH (09:00)
[2017-06-01] MEDS ORDERED: NON-FORMULARY MEDICATION (Metoprolol Tartrate [Metoprolol Tartrate] 50 MG) PO SCH (09:00)
[2017-06-01] MEDS ORDERED: NORVASC PO SCH (09:00)
[2017-06-01] MEDS ORDERED: SYMBICORT 160-4.5 MCG INHALER IH SCH (09:00)
[2017-06-01] MEDS ORDERED: FLUTICASONE PROPIONATE IH SCH ×22 (09:00)
[2017-06-01 09:33] LABS: TROPONIN I 0.019 ng/ml (0.0000-0.4000)
[2017-06-01 09:38] LABS: CREATINE KINASE MB 4.5 ng/ml (0.0-3.6)
[2017-06-01] MEDS: XOPENEX 1.25 MG NEB SCH ×3 (11:14→22:58)
[2017-06-01] MEDS ORDERED: SUMATRIPTAN SUCCINATE 50 MG PO PRN (12:01)
[2017-06-01 14:20] LABS: COCAIN SCREEN,URINE POSITIVE (NEGATIVE)
[2017-06-01] MEDS: NEURONTIN PO SCH ×2 (14:26→20:53)
[2017-06-01] MEDS: IMITREX PO PRN (15:32)
[2017-06-01] MEDS: NORCO 7.5-325 PO SCH ×2 (16:38→20:54)
[2017-06-01 17:27] LABS: CREATINE KINASE 660 U/L
[2017-06-01 17:29] LABS: CREATINE KINASE MB 4.2 ng/ml (0.0-3.6)
[2017-06-01] MEDS: DICLOFENAC SODIUM 50 MG PO SCH (18:07)
[2017-06-01] MEDS: VITAMIN D PO SCH (20:54)
[2017-06-01] MEDS: SYMBICORT 160-4.5 MCG INHALER IH SCH (20:54)
[2017-06-01] MEDS: LIPITOR PO SCH (20:54)
[2017-06-01] MEDS ORDERED: NON-FORMULARY MEDICATION (Cholecalciferol (Vitamin D3) [Vitamin D3] 2,000 UNIT) PO SCH (21:00)
[2017-06-02] MEDS: ROBITUSSIN AC SYRUP PO PRN ×2 (02:23→09:13)
[2017-06-02] MEDS: XOPENEX 1.25 MG NEB SCH ×4 (05:00→23:27)
[2017-06-02 05:01] LABS: BASOPHILS % (AUTO) 0.1 % (0.0-3.0); HEMATOCRIT 36.2 % (42.0-52.0); HEMOGLOBIN 12.7 g/dl (14.0-18.0); IMMATURE GRANULOCYTE % (AUTO) 0.6 % (0.0-5.0); LYMPHOCYTES # (AUTO) 0.5 K/uL (0.60-3.4); LYMPHOCYTES % (AUTO) 5.9 (10.0-50.0); MEAN CORPUSCULAR HEMOGLOBIN 33.2 pg (27.0-31.0); MEAN CORPUSCULAR HGB CONC 35.1 (31.8-35.4); MEAN CORPUSCULAR VOLUME 94.5 fl (80.0-94.0); MONOCYTES # (AUTO) 0.4 K/uL (0.4-2.0); MONOCYTES % (AUTO) 4.2 (0-10); NEUTROPHILS # (AUTO) 7.9 K/ul (2.0-6.9); NEUTROPHILS % (AUTO) 89.2; PLATELET COUNT 241 10^3/uL (140-440); RED BLOOD COUNT 3.83 10^6/ul (4.70-6.10); WHITE BLOOD COUNT 8.86 K/ul (4.2-10.2)
[2017-06-02 05:21] LABS: ALBUMIN 3.6 g/dL (3.4-5.0); ALBUMIN/GLOBULIN RATIO 1.2; ANION GAP 15.3; BILIRUBIN,TOTAL 0.42 mg/dL (0.00-1.20); BUN/CREATININE RATIO 8.64; CALCIUM 8.9 mg/dL (8.2-10.2); CREATININE 0.81 mg/dL (0.60-1.10); POTASSIUM 3.3 mmol/L (3.5-5.1); TOTAL PROTEIN 6.6 g/dL (6.4-8.2)
[2017-06-02] MEDS: SOLU-MEDROL 125 MG IVP SCH ×3 (05:56→22:44)
[2017-06-02] MEDS: SODIUM CHLORIDE 0.9%-KCL 20 MEQ 1,000 ML IV SCH ×2 (06:28→07:40)
[2017-06-02] MEDS ORDERED: MORPHINE 2 MG/ML SYRINGE IVP PRN (08:22)
[2017-06-02] MEDS ORDERED: LOPRESSOR PO SCH (09:00)
[2017-06-02] MEDS: SYMBICORT 160-4.5 MCG INHALER IH SCH ×2 (09:13→21:04)
[2017-06-02] MEDS: HYDROCHLOROTHIAZIDE PO SCH (09:14)
[2017-06-02] MEDS: VITAMIN D PO SCH ×2 (09:15→21:05)
[2017-06-02] MEDS: NORCO 7.5-325 PO SCH ×4 (09:15→21:05)
[2017-06-02] MEDS: NORVASC PO SCH (09:15)
[2017-06-02] MEDS: LOPRESSOR PO SCH (09:15)
[2017-06-02] MEDS: FLEXERIL PO SCH ×3 (09:16→21:04)
[2017-06-02] MEDS: DICLOFENAC SODIUM 50 MG PO SCH ×2 (09:16→17:46)
[2017-06-02] MEDS: COZAAR PO SCH (09:16)
[2017-06-02] MEDS: K-DUR PO SCH (09:17)
[2017-06-02] MEDS: NEURONTIN PO SCH ×3 (09:17→21:05)
[2017-06-02] MEDS: MAG-OX PO SCH (09:17)
[2017-06-02] MEDS: LOVENOX SUBCUT SCH (09:17)
[2017-06-02] MEDS: ROCEPHIN 1 GM in SODIUM CHLORIDE 50 ML IV SCH (10:00)
[2017-06-02] MEDS ORDERED: THIAMINE IVP STA (12:46)
--- NOTE | 2017-06-02 14:06 | HP ---
DATE OF SERVICE: 06/01/17 CHIEF COMPLAINT: Shortness of breath. HISTORY OF PRESENT ILLNESS: This is a 56-year-old male with history of asthma, started having severe shortness of breath early in the morning. The patient has been drinking two pints of Vodka. EMT was called and started the patient on Saline IV. Audible wheezing was there. They started giving a breathing treatment. The patient is unconscious in the bed. He has been having apneic spells en route to the hospital. The patient was brought to the emergency room and was seen by Dr. Casey. He gave him Solu-Medrol 125, Metoprolol and the patient was still wheezing. Initial blood pressure of 134/115. The rest of the labs include - potassium of 3.2. ABG showed pH 7.321, pc02 38.1, p02 83. Chest x-ray is clear. At that time, the patient is admitted to the hospital secondary to asthma exacerbation with shortness of breath with alcohol overdose. REVIEW OF SYSTEMS: CONSTITUTIONAL: Weakness, tiredness. (The patient has been drinking alcohol.) No fever, no chills. HEENT: Normal. ENDOCRINE: No weight gain; no weight loss. CVS: No chest pain. No PND, no orthopnea. Shortness of breath. No PND, no orthopnea. RESPIRATORY: Cough and congestion. No hemoptysis. GI: No nausea, no vomiting. No abdominal pain. No melena. : No hematuria. No polyuria. MUSCULOSKELETAL: No joint swelling. PSYCHIATRIC: Not anxious. No depression. No suicidal thoughts. No homicidal thoughts. SKIN: Intact, no open lesions. PAST MEDICAL/SURGICAL HISTORY: 1. Asthma 2. Coronary artery disease 3. Dyslipidemia 4. Hypertension 5. Headaches, migraine in type 6. Sleep apnea 7. Osteoarthritis 8. DJD spine 9. Left rotator cuff problems 10. Nicotine use PERSONAL HISTORY: Smokes one pack per day, drinks alcohol and substance use as well. FAMILY HISTORY: Significant for hypertension and triple A. MEDICATIONS: 1. Hydrochlorothiazide 2. Metoprolol 3. Flexeril 4. Lipitor 5. Flovent 6. Symbicort 7. Epinephrine 8. Albuterol 9. Claritin 10. Magnesium Oxide 11. Robitussin 12. Potassium Chloride 13. Norvasc 14. Diclofenac 15. Imitrex 16. Cozaar 17. Vitamin D3 18. Neurontin ALLERGIES: ONION, COCONUT, VENOM-HONEY BEE PHYSICAL EXAMINATION: V/S: BP 128/80, respiratory rate 15, heart rate 102, temperature 97.5. HEENT: Atraumatic, normocephalic. No scleral icterus. Pallor positive. Mucosa dry. NECK: Supple. No JVD, no bruit. No lymphadenopathy. No thyromegaly. HEART: S1, S2 normal. No murmur. No cyanosis or clubbing. No ascites. LUNGS: Decreased entry, wheezing present bilaterally, diffuse wheezing. ABDOMEN: Soft, nontender. Bowel sounds are active. No CVA tenderness. No rigidity or guarding. EXTREMITIES: No cyanosis, clubbing or pedal edema. MUSCULOSKELETAL: Normal joints, no swelling. NEUROLOGIC: The patient responds to verbal stimuli and goes back to sleep. Complains of shortness of breath. SKIN: Intact; no open lesions. LYMPHATIC: No lymph nodes palpable. LABS: White count 5.63, hemoglobin 12.1, hematocrit 35.1, platelet count 236. ABG showed pH 7.321, pc02 38.1, p02 83, sodium 146, potassium 3.2, chloride 112, bicarb 19, BUN 13, creatinine 0.98. ASSESSMENT: 1. ASTHMATIC EXACERBATION 2. ALCOHOL INTOXICATION 3. HYPOKALEMIA 4. DEHYDRATION 5. HISTORY OF HYPERTENSION 6. DYSLIPIDEMIA 7. NICOTINE USE 8. OSTEOARTHRITIS PLAN: 1. Admit the patient to the regular floor 2. CBC, CMP today and daily 3. Cardiac enzymes and troponin 4. NPO for now as the patient is not awake 5. Continue home medication 6. Rocephin 1 gm daily 7. Duonebs 8. Solu-Medrol 125 mg q.8hr 9. Daily I & O's 10. Will follow with the patient in daily rounds TIME SPENT: More than 70 minutes today MTDD
[2017-06-02] MEDS: LIPITOR PO SCH (21:05)
[2017-06-03] MEDS: SOLU-MEDROL 125 MG IVP SCH ×3 (04:47→20:47)
[2017-06-03] MEDS: XOPENEX 1.25 MG NEB SCH ×4 (05:30→23:15)
[2017-06-03 06:52] LABS: BASOPHILS % (AUTO) 0.1 % (0.0-3.0); HEMATOCRIT 37.7 % (42.0-52.0); IMMATURE GRANULOCYTE % (AUTO) 1.1 % (0.0-5.0); LYMPHOCYTES # (AUTO) 0.5 K/uL (0.60-3.4); LYMPHOCYTES % (AUTO) 5.4 (10.0-50.0); MEAN CORPUSCULAR HEMOGLOBIN 32.7 pg (27.0-31.0); MEAN CORPUSCULAR HGB CONC 34.5 (31.8-35.4); MONOCYTES # (AUTO) 0.3 K/uL (0.4-2.0); MONOCYTES % (AUTO) 3.4 (0-10); NEUTROPHILS # (AUTO) 8.3 K/ul (2.0-6.9); PLATELET COUNT 252 10^3/uL (140-440); RED BLOOD COUNT 3.97 10^6/ul (4.70-6.10); WHITE BLOOD COUNT 9.23 K/ul (4.2-10.2)
[2017-06-03 07:11] LABS: ALBUMIN 3.6 g/dL (3.4-5.0); ALBUMIN/GLOBULIN RATIO 1.29; ANION GAP 15.3; BILIRUBIN,TOTAL 0.3 mg/dL (0.00-1.20); BUN/CREATININE RATIO 14.14; CALCIUM 8.8 mg/dL (8.2-10.2); CREATININE 0.99 mg/dL (0.60-1.10); POTASSIUM 3.3 mmol/L (3.5-5.1); TOTAL PROTEIN 6.4 g/dL (6.4-8.2)
[2017-06-03] MEDS: IMITREX PO PRN (10:10)
[2017-06-03] MEDS: DICLOFENAC SODIUM 50 MG PO SCH ×2 (10:10→16:29)
[2017-06-03] MEDS: COZAAR PO SCH (10:10)
[2017-06-03] MEDS: FLEXERIL PO SCH ×3 (10:11→20:49)
[2017-06-03] MEDS: VITAMIN D PO SCH ×2 (10:11→20:49)
[2017-06-03] MEDS: MAG-OX PO SCH (10:11)
[2017-06-03] MEDS: NEURONTIN PO SCH ×3 (10:11→20:48)
[2017-06-03] MEDS: LOVENOX SUBCUT SCH (10:12)
[2017-06-03] MEDS: K-DUR PO SCH (10:12)
[2017-06-03] MEDS: NORVASC PO SCH (10:12)
[2017-06-03] MEDS: ROCEPHIN 1 GM in SODIUM CHLORIDE 50 ML IV SCH (10:12)
[2017-06-03] MEDS: LOPRESSOR PO SCH (10:12)
[2017-06-03] MEDS: SYMBICORT 160-4.5 MCG INHALER IH SCH ×2 (10:12→20:47)
[2017-06-03] MEDS: NORCO 7.5-325 PO SCH ×4 (10:13→20:48)
[2017-06-03] MEDS: HYDROCHLOROTHIAZIDE PO SCH (10:14)
[2017-06-03] MEDS: LIPITOR PO SCH (20:49)
[2017-06-04] MEDS: XOPENEX 1.25 MG NEB SCH ×4 (05:12→23:12)
[2017-06-04] MEDS: SOLU-MEDROL 125 MG IVP SCH ×3 (05:24→20:10)
[2017-06-04 07:00] LABS: BASOPHILS % (AUTO) 0.2 % (0.0-3.0); HEMATOCRIT 39.9 % (42.0-52.0); HEMOGLOBIN 13.7 g/dl (14.0-18.0); IMMATURE GRANULOCYTE % (AUTO) 1.2 % (0.0-5.0); LYMPHOCYTES # (AUTO) 0.9 K/uL (0.60-3.4); LYMPHOCYTES % (AUTO) 7.6 (10.0-50.0); MEAN CORPUSCULAR HEMOGLOBIN 32.7 pg (27.0-31.0); MEAN CORPUSCULAR HGB CONC 34.3 (31.8-35.4); MEAN CORPUSCULAR VOLUME 95.2 fl (80.0-94.0); MONOCYTES # (AUTO) 0.7 K/uL (0.4-2.0); MONOCYTES % (AUTO) 5.3 (0-10); NEUTROPHILS # (AUTO) 10.5 K/ul (2.0-6.9); NEUTROPHILS % (AUTO) 85.7; PLATELET COUNT 262 10^3/uL (140-440); RED BLOOD COUNT 4.19 10^6/ul (4.70-6.10); WHITE BLOOD COUNT 12.21 K/ul (4.2-10.2)
[2017-06-04 07:19] LABS: ALBUMIN 3.6 g/dL (3.4-5.0); ALBUMIN/GLOBULIN RATIO 1.24; ANION GAP 14.5; BILIRUBIN,TOTAL 0.25 mg/dL (0.00-1.20); BUN/CREATININE RATIO 19.56; CALCIUM 8.8 mg/dL (8.2-10.2); CREATININE 0.92 mg/dL (0.60-1.10); POTASSIUM 3.5 mmol/L (3.5-5.1); TOTAL PROTEIN 6.5 g/dL (6.4-8.2)
[2017-06-04] MEDS: LOVENOX SUBCUT SCH (08:03)
[2017-06-04] MEDS: NEURONTIN PO SCH ×3 (08:03→20:10)
[2017-06-04] MEDS: DICLOFENAC SODIUM 50 MG PO SCH ×2 (08:03→16:53)
[2017-06-04] MEDS: VITAMIN D PO SCH ×2 (08:03→20:11)
[2017-06-04] MEDS: MAG-OX PO SCH (08:03)
[2017-06-04] MEDS: ROCEPHIN 1 GM in SODIUM CHLORIDE 50 ML IV SCH (08:03)
[2017-06-04] MEDS: SYMBICORT 160-4.5 MCG INHALER IH SCH ×2 (08:03→20:10)
[2017-06-04] MEDS: FLEXERIL PO SCH ×3 (08:03→20:11)
[2017-06-04] MEDS: HYDROCHLOROTHIAZIDE PO SCH (08:04)
[2017-06-04] MEDS: LOPRESSOR PO SCH (08:04)
[2017-06-04] MEDS: NORVASC PO SCH (08:04)
[2017-06-04] MEDS: COZAAR PO SCH (08:04)
[2017-06-04] MEDS: K-DUR PO SCH (08:04)
[2017-06-04] MEDS: NORCO 7.5-325 PO SCH ×4 (08:06→20:10)
[2017-06-04] MEDS: LIPITOR PO SCH (20:10)
[2017-06-05 04:55] LABS: BASOPHILS % (AUTO) 0.3 % (0.0-3.0); HEMATOCRIT 38.4 % (42.0-52.0); HEMOGLOBIN 13.4 g/dl (14.0-18.0); IMMATURE GRANULOCYTE % (AUTO) 2.3 % (0.0-5.0); LYMPHOCYTES # (AUTO) 1.4 K/uL (0.60-3.4); MEAN CORPUSCULAR HEMOGLOBIN 32.8 pg (27.0-31.0); MEAN CORPUSCULAR HGB CONC 34.9 (31.8-35.4); MEAN CORPUSCULAR VOLUME 94.1 fl (80.0-94.0); MONOCYTES # (AUTO) 0.7 K/uL (0.4-2.0); MONOCYTES % (AUTO) 4.2 (0-10); NEUTROPHILS # (AUTO) 13.1 K/ul (2.0-6.9); NEUTROPHILS % (AUTO) 84.2; PLATELET COUNT 257 10^3/uL (140-440); RED BLOOD COUNT 4.08 10^6/ul (4.70-6.10); WHITE BLOOD COUNT 15.52 K/ul (4.2-10.2)
[2017-06-05] MEDS: XOPENEX 1.25 MG NEB SCH ×2 (05:10→11:06)
[2017-06-05] MEDS: SOLU-MEDROL 125 MG IVP SCH (05:31)
[2017-06-05 05:34] LABS: ALBUMIN 3.4 g/dL (3.4-5.0); ANION GAP 14.4; BILIRUBIN,TOTAL 0.25 mg/dL (0.00-1.20); BUN/CREATININE RATIO 22.35; CALCIUM 8.6 mg/dL (8.2-10.2); CREATININE 0.85 mg/dL (0.60-1.10); POTASSIUM 3.4 mmol/L (3.5-5.1); TOTAL PROTEIN 6.8 g/dL (6.4-8.2)
[2017-06-05] MEDS: MAG-OX PO SCH (08:36)
[2017-06-05] MEDS: HYDROCHLOROTHIAZIDE PO SCH (08:36)
[2017-06-05] MEDS: NEURONTIN PO SCH (08:36)
[2017-06-05] MEDS: K-DUR PO SCH (08:36)
[2017-06-05] MEDS: LOPRESSOR PO SCH (08:36)
[2017-06-05] MEDS: NORVASC PO SCH (08:36)
[2017-06-05] MEDS: VITAMIN D PO SCH (08:36)
[2017-06-05] MEDS: COZAAR PO SCH (08:36)
[2017-06-05] MEDS: DICLOFENAC SODIUM 50 MG PO SCH (08:37)
[2017-06-05] MEDS: ROCEPHIN 1 GM in SODIUM CHLORIDE 50 ML IV SCH (08:37)
[2017-06-05] MEDS: NORCO 7.5-325 PO SCH (08:37)
[2017-06-05] MEDS: LOVENOX SUBCUT SCH (08:37)
[2017-06-05] MEDS: SYMBICORT 160-4.5 MCG INHALER IH SCH (08:37)
[2017-06-05] MEDS: FLEXERIL PO SCH (08:37)
[2017-06-05 10:04] VITALS: BP 156/98; TEMP 97.8
--- NOTE | 2017-06-21 08:28 | PN ---
DATE OF SERVICE: 06/02/17 SUBJECTIVE: The patient was admitted with asthma exacerbation and shortness of breath. As of now, today the patient complains about the headache and neck pain. The patient had a cyst removed a couple months ago and complains about the pain today and hurting all over and hurting in the chest with the cough, not able to bring any phlegm. Blood pressure is elevated 154/96. REVIEW OF SYSTEMS: CONSTITUTIONAL: No fever, no chills. HEENT: Normal. ENDOCRINE: No weight gain, no weight loss. CVS: No angina symptoms. No CHF symptoms. No palpitations. No atypical chest pain for CAD. No shortness of breath. No PND, no orthopnea. RESPIRATORY: No cough, no hemoptysis. GI: No nausea, no vomiting. No abdominal pain. : No hematuria. No polyuria. MUSCULOSKELETAL:. No joint swelling. PSYCHIATRIC: Not anxious. No depression. No suicidal thoughts. No homicidal thoughts. SKIN: Intact. No rash. PHYSICAL EXAMINATION: V/S: Blood pressure 154/96, heart rate 100, respiratory rate 18, saturation 96% on 3 liters. HEENT: Normocephalic, atraumatic. Mucosa dry. Pallor positive. No icterus. NECK: Supple. No JVD, no carotid bruit. No lymphadenopathy. LUNGS: Decreased with basilar crackles defused expiratory wheeze present. No rales or rhonchi. HEART: S1, S2 normal. No S3. No murmur, gallop or regurgitation. ABDOMEN: Soft, nontender. Bowel sounds active. No rigidity. No rebound or guarding. No CVA tenderness. EXTREMITIES: No clubbing, cyanosis or pedal edema. MUSCULOSKELETAL: No joint swelling. NEUROLOGIC: Awake, alert, oriented times three. No focal deficit. LYMPHATIC: No lymph nodes palpable. SKIN: Intact. LABS: WBC 8.86, hgb 12.7, hct 36.2, plt count 241, sodium 138, potassium 3.3, chloride 104, bicarb 22, BUN 7, creatinine 0.81, glucose 248. ASSESSMENT: 1. Asthmatic exacerbation secondary to acute bronchitis 2. Cocaine use 3. Hypertension, uncontrolled 4. History of substance use 5. History of migraine headaches 6. Sleep apnea on CPAP 7. Dyslipidemia 8. Left shoulder rotator cuff problem PLAN: 1. Replace potassium 2. Continue Solu-Medrol 3. DUO NEBS 4. Morphine 2mg Q 8 hours for pain 5. Will check HbA1c Will follow the patient in daily rounds. TIME SPENT: More than 30 minutes MTDD
--- NOTE | 2017-06-21 11:56 | PN ---
DATE OF SERVICE: 06/03/17 SUBJECTIVE: The patient is admitted with asthma exacerbation, alcohol intoxication and cocaine use. The patient is still coughing, unable to bring up any phlegm. Complains of pain in the neck, Morphine is helping. He has not been active, says he gets short of breath. He has tried to sleep in bed all day. REVIEW OF SYSTEMS: CONSTITUTIONAL: No fever, no chills. HEENT: Normocephalic, atraumatic. Neck pain. ENDOCRINE: No weight gain, no weight loss. CVS: No angina symptoms. No CHF symptoms. No palpitations. No atypical chest pain for CAD. Shortness of breath on minimal exertion. No PND, no orthopnea. RESPIRATORY: Cough. No hemoptysis. GI: No nausea, no vomiting. No abdominal pain. : No hematuria. No polyuria. MUSCULOSKELETAL:. No joint swelling. PSYCHIATRIC: Not anxious. No depression. No suicidal thoughts. No homicidal thoughts. SKIN: Intact. No rash. PHYSICAL EXAMINATION: V/S: BP 142/92, respiratory rate is 16, heart rate 87, temperature 97.9, saturation 97 on 3L. HEENT: Normocephalic, atraumatic. Mucosa dry, pallor positive. No icterus. NECK: Supple. No JVD, no carotid bruit. No lymphadenopathy. LUNGS: Decreased breath sounds with basilar crackles. Expiratory wheeze is present. Pallor positive. HEART: S1, S2 normal. No S3. No murmur, gallop or regurgitation. ABDOMEN: Soft, nontender. Bowel sounds active. No rigidity. No rebound or guarding. No CVA tenderness. EXTREMITIES: No clubbing, cyanosis or pedal edema. MUSCULOSKELETAL: No joint swelling. NEUROLOGIC: Awake, alert, oriented times three. No focal deficit. LYMPHATIC: No lymph nodes palpable. SKIN: Intact. LABS: White count is 9.23, hemoglobin 13.0, hematocrit 37.3, platelet count 252. Sodium 137, potassium 3.3, chloride 99, bicarb 26, BUN 14, creatinine 0.99, glucose 232. ASSESSMENT: 1. ASTHMA EXACERBATION SECONDARY TO BRONCHITIS 2. COCAINE USE 3. HYPERTENSION, UNCONTROLLED 4. DIABETES, UNCONTROLLED 5. DYSLIPIDEMIA 6. OSTEOARTHRITIS 7. DJD SPINE 8. CHRONIC PAIN IN THE NECK POST SURGERY PLAN: 1. Continue the Lovenox for DVT prophylaxis 2. Morphine for the pain 3. Solu-Medrol 125 mg q.8hr 4. Rocephin 1 gm daily 5. Daily I & O's TIME SPENT: More than 30 minutes MTDD
--- NOTE | 2017-06-21 13:12 | PN ---
DATE OF SERVICE: 06/04/17 SUBJECTIVE: The patient is admitted with asthmatic exacerbation after using cocaine. The patient had multiple episodes of admissions of this sort. He inhales cocaine and gets severe respiratory spasms and has asthmatic attack and comes here. Despite talking to the patient, and with multiple episodes, offered rehabilitation; however, the patient does not want any help. He still complains about the back of neck pain where he had a cyst removed a couple of years ago. Otherwise, he doesn't want to get out of bed and still in the bed. REVIEW OF SYSTEMS: CONSTITUTIONAL: No fever, no chills. HEENT: Normocephalic, atraumatic. Back of neck pain. ENDOCRINE: No weight gain, no weight loss. CVS: No angina symptoms. No CHF symptoms. No palpitations. No atypical chest pain for CAD. No shortness of breath. No PND, no orthopnea. RESPIRATORY: No cough, no hemoptysis. GI: No nausea, no vomiting. No abdominal pain. : No hematuria. No polyuria. MUSCULOSKELETAL:. No joint swelling. PSYCHIATRIC: Not anxious. No depression. No suicidal thoughts. No homicidal thoughts. SKIN: Intact. No rash. PHYSICAL EXAMINATION: V/S: BP 116/60, respiratory rate 16, heart rate 82, temperature 98.0. Saturation 97% on 3L. HEENT: Normocephalic, atraumatic. Pallor positive. NECK: Supple. No JVD, no carotid bruit. No lymphadenopathy. LUNGS: Decreased breath sounds, basilar crackles. Mild expiratory wheeze, much improved. HEART: S1, S2 normal. No S3. No murmur, gallop or regurgitation. ABDOMEN: Soft, nontender. Bowel sounds active. No rigidity. No rebound or guarding. No CVA tenderness. EXTREMITIES: No clubbing, cyanosis or pedal edema. MUSCULOSKELETAL: No joint swelling. NEUROLOGIC: Awake, alert, oriented times three. No focal deficit. LYMPHATIC: No lymph nodes palpable. SKIN: Intact. LABS: Sodium 137, potassium 3.5, chloride 96, bicarb 30, BUN 18, creatinine 0.92. White count 12.21, hemoglobin 13.7, hematocrit 39.9, platelet count 262. ASSESSMENT: 1. ASTHMATIC/COPD EXACERBATION SECONDARY TO BRONCHITIS 2. COCAINE USE 3. HYPERTENSION, UNCONTROLLED 4. DIABETES MELLITUS 5. OSTEOARTHRITIS 6. DJD SPINE 7. MIGRAINE HEADACHE 8. ROTATOR CUFF INJURY WITH PAIN IN THE SHOULDERS PLAN: 1. Continue Rocephin, Solu-Medrol, Duonebs 2. Out of bed to chair 3. Activity as tolerated 4. Will follow with the patient in daily rounds TIME SPENT: More than 30 minutes MTDD
--- NOTE | 2017-06-21 14:07 | DS ---
DATE OF SERVICE: 06/05/17 FINAL DIAGNOSIS: 1. ASTHMATIC/COPD EXACERBATION SECONDARY TO BRONCHITIS AND COCAINE USE 2. ALCOHOL INTOXICATION 3. COPD/HYPOXEMIA NOW QUALIFIED FOR OXYGEN 4. HISTORY OF CHRONIC NECK PAIN 5. HYPERTENSION 6. DYSLIPIDEMIA 7. OSTEOARTHRITIS 8. DJD SPINE 9. DIABETES MELLITUS 10. HYPERTENSION, UNCONTROLLED 11. MIGRAINE HEADACHES 12. SLEEP APNEA, ON CPAP NOT USING LATELY 13. LEFT ROTATOR CUFF PAIN, GOES TO PAIN MANAGEMENT 14. APPENDECTOMY DISCHARGE INSTRUCTIONS: 1. Discharge the patient home 2. An appointment has been scheduled at the [facility] on June 13 at [address] Baker. 3. [facility] in [place] will supply the oxygen. Use 2L/NC at all times MEDICATIONS AT DISCHARGE: 1. Losartan has been increased to 100 mg daily, take two of 50 mg tablets to equal 100 mg 2. Metoprolol 50 mg twice a day has been changed to 100 mg 3. Albuterol nebulizer p.r.n. 4. Norvasc 5 mg p.o. daily 5. Lipitor 20 mg p.o. at bedtime 6. Symbicort two puffs b.i.d. 7. Vitamin D3 2000 units p.o. b.i.d. 8. Flexeril 10 mg p.o. t.i.d. 9. Diclofenac 50 mg p.o. b.i.d. 10. Flonase daily one spray 11. Neurontin 200 mg t.i.d. 12. Hydrochlorothiazide 25 mg p.o. daily 13. Hydrocodone one tablet q.i.d. 14. Magnesium Oxide 400 mg daily 15. Imitrex 50 mg p.o. daily NEW PRESCRIPTIONS: 1. Keflex 500 mg twice a day for five days 2. Medrol Dosepak DIET INSTRUCTIONS: Heart Healthy Diet ACTIVITY: Resume as tolerated. SMOKING: N/A DISEASE SPECIFIC EDUCATION: 1. COPD/asthma and exacerbation with Cocaine use 2. Risk of hypertension and intracranial bleed has been discussed, verbalized understanding HOSPITAL COURSE: This is a 56-year-old male came to the emergency room with cough, congestion, severe shortness of breath after having cocaine use and alcohol intoxication seen by Dr. Casey in the emergency room. A dose of Solu-Medrol 125 mg and breathing treatments were given. He was still having wheezing diffusely. ABG showed pH 7.321, pc02 38.1, p02 83. At that time, he was admitted to the hospital for uncontrolled hypertension and asthmatic exacerbation. The patient was started on Rocephin, Solu-Medrol and Duonebs. Blood pressure was high so Losartan was increased to 100 mg and Metoprolol Tartrate 50 was increased to twice daily. Morphine was started for pain medication. Toxicology screen was done which showed cocaine positive, opiates positive, and marijuana positive. Again, repeatedly explained about the dangers of using cocaine and risk of elevated blood pressure, intracranial bleed, stroke, and heart attacks. The patient verbalized understanding. The patient's heart rate was going up to 130s to 140s and coming down to 80s. The patient was desaturating with minimal exertion. At rest, 94 and with exertion it dropped to 87 so the patient was automatically qualified for home oxygen, hypoxemia. The patient was agreeable to use oxygen. The risk of highly inflammable status of the oxygen was discussed with the patient and verbalized understanding. He is willing to use oxygen as it is helping to ambulate more. As the patient's blood pressure is controlled, shortness of breath and wheezing better, the patient is discharged home. TIME SPENT: More than 60 minutes today. MAYTE
== END 2017-06-05 12:58 | disposition home or self-care (01) | DRG 202 ==
LOC: ED 00:47 → SCU 03:13
PROVIDERS: ADMIT Emergency Medicine; ATTEND Emergency Medicine
DX: J45.901 Unspecified asthma with (acute) exacerbation (principal); J44.1 Chronic obstructive pulmonary disease with (acute) exacerbation; R09.02 Hypoxemia; I10 Essential (primary) hypertension; F10.129 Alcohol abuse with intoxication, unspecified; F14.90 Cocaine use, unspecified, uncomplicated; F11.90 Opioid use, unspecified, uncomplicated; F12.90 Cannabis use, unspecified, uncomplicated; G89.29 Other chronic pain; R06.02 Shortness of breath; M54.2 Cervicalgia; E78.5 Hyperlipidemia, unspecified; M19.90 Unspecified osteoarthritis, unspecified site; M47.9 Spondylosis, unspecified; E11.9 Type 2 diabetes mellitus without complications; G43.909 Migraine, unspecified, not intractable, without status migrainosus; G47.30 Sleep apnea, unspecified; M25.512 Pain in left shoulder; F17.200 Nicotine dependence, unspecified, uncomplicated; Z79.899 Other long term (current) drug therapy; Z98.890 Other specified postprocedural states
CPT/HCPCS: 36415; 80053; 80306; 82550; 82553; 82803; 83036; 83880; 84484; 85025; 87081; 93005; 93010; 94640; 94761; 96374; 97802; 99284

== ENCOUNTER 2017-06-01 00:57 | Outpatient (CLI) ==
[2013-05-24 11:45] VITALS: TEMP 98.1
[2017-06-01 03:58] VITALS: BMI 31.4
== END 2017-06-01 00:58 | disposition home or self-care (01) ==
LOC: AMBL 00:57
PROVIDERS: ATTEND Internal Medicine
DX: J45.901 Unspecified asthma with (acute) exacerbation (principal); R40.4 Transient alteration of awareness

== ENCOUNTER 2017-06-14 11:00 | Outpatient (CLI) ==
[2013-05-24 11:45] VITALS: TEMP 98.1
--- NOTE | 2017-06-14 15:34 | MRI ---
EXAM: MRI cervical spine without IV contrast. DATE: 06/14/2017. HISTORY: Cervicalgia. Left arm numbness. TECHNIQUE: Sagittal and axial T1W and T2W sequences of the cervical spine along with sagittal IR an d coronal T2W sequences were obtained using 1.2 Aurora magnet. No IV contrast. COMPARISON: MRI C-spine 01/15/2016. CT C-spine 04/02/2015. FINDINGS: There is no cervical scoliosis. No acute c-spine fracture, subluxation, osseous malignan cy, or jumped facet is evident. Cervical vertebra are normal in height. Bone marrow signal is over all normal. T1W bone marrow signal is somewhat heterogeneous, without distinct focal mass. Interve rtebral discs are normal in height. Cervical and upper thoracic spinal cord reveals no syrinx, cord edema, myelomalacia, or neoplasm. Visible brainstem is normal. Flattening at the inferomedial aspect of the left cerebellum could be due to an old infarct. Visible mastoid air cells are unremarkable. No thyroid, submandibular, or p arotid gland neoplasm is demonstrated. Trachea, larynx, and epiglottis are unremarkable. No neck m ass, cervical lymphadenopathy, apical lung mass, pneumonia, or pleural effusion is identified. Segmental analysis: C2-3: No disc protrusion or central canal stenosis. Canal is 10.6 mm AP. Mild/moderate right fora mary stenosis is due to uncinate hypertrophy. C3-4: Broad posterior disc/osteophyte complex (2 mm AP) does not contact the cord. Canal is 9.4 mm AP. Moderate bilateral foraminal stenoses due to uncinate hypertrophy. C4-5: Small posterior disc/osteophyte complex (2.1 mm AP) does not contact the cord. Canal is 10.2 mm AP. Minor right and mild left foraminal stenoses due to uncinate hypertrophy and minor facet di sease. C5-6: Small posterior disc bulge (2.3 mm AP) does not contact the cord at rest. Canal is 10.2 mm A P. Each foramen is patent. C6-7: Minor posterior disc bulge (1.4 mm AP) does not contact the cord. Canal is 11.3 mm AP. Mild left foraminal stenosis is due to uncinate hypertrophy and minor left facet disease. C7-T1: No disc protrusion or central stenosis. Each foramen is mildly narrow due to uncinate hyper trophy and minor facet disease. T1-2: Normal. IMPRESSIONS: 1. C-spine minor facet arthropathy, minor uncinate hypertrophy, and multilevel mild DDD. 2. Multilevel foraminal stenoses, especially bilateral C3-4. 3. Cervical spine mild central canal stenosis at C3-4. 4. 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
== END 2017-06-14 11:01 | disposition home or self-care (01) ==
LOC: RAD 11:00
PROVIDERS: ATTEND Emergency Medicine
DX: M54.2 Cervicalgia (principal)

== ENCOUNTER 2017-07-17 09:47 | Emergency (ER) ==
[2017-07-17 09:51] VITALS: BP 173/112; TEMP 98.4; BMI 32.0
--- NOTE | 2017-07-17 09:52 | ED.PDOC ---
General ED Provider: Dr. OSCAR YATES Chief Complaint: Tooth Problem Stated Complaint: dental pain Time Seen by Physician: 09:50 (seen with colt) Mode of Arrival: Walk-In Exam Limitations: No limitations [facility] and Triage Documentation Reviewed and Agree: Yes EENT Complaint Exam - Dental/Oral Complaint/Exam Mechanism of Injury: No known trauma Symptoms Are: Still present Timing: Constant Initial Severity: Moderate Current Severity: Moderate Character: Reports: Dull, Aching, Throbbing Aggravating: Reports: Heat, Cold, Chewing Alleviating: Reports: None Associated Signs and Symptoms: Reports: Swelling (right jaw ). Denies: Discharge, Fever, Foul odor, Foul taste in mouth Related History: Reports: Similar episode Cardiac Risk Factors: Reports: Elevated lipids, Hypertension Dental/Oral Surgical History: Reports: None Tooth Findings: Present: Percussion tenderness, Gross decay, Gross caries, Dental fracture Cervical Lymphadenopathy Present: No Facial Swelling Present: Yes (minimal right jaw edema) Bleeding Present: No Oropharynx Findings: Absent: Clots, Active bleeding Septal Hematoma: No Foreign Body Present: No Dysphagia Present: No Drooling Present: No Asymmetrical Tonsillar Swelling Present: No Uvula Midline: Yes Julianne-tonsillar Fluctuence: No Trismus Present: No Palatal Petechiae Present: No Scarlatinaform Rash Present: No Teeth Picture: 1 - decay Differential Diagnoses: Dental Caries, Fractured Tooth Review of Systems - Review Of Systems Constitutional: Reports: No symptoms Eyes: Reports: No symptoms Ears, Nose, Mouth, Throat: Reports: Mouth pain Respiratory: Reports: No symptoms Cardiac: Reports: No symptoms GI: Reports: No symptoms : Reports: No symptoms Musculoskeletal: Reports: No symptoms Skin: Reports: No symptoms Neurological: Reports: No symptoms Endocrine: Reports: No symptoms Hematologic/Lymphatic: Reports: No symptoms All Other Systems: Reviewed and Negative Past Medical History - Past Medical History Previously Healthy: No Endocrine: Reports: Dyslipidemia Cardiovascular: Reports: Hypertension Respiratory: Reports: COPD, Asthma Hematological: Reports: None Gastrointestinal: Reports: None Genitourinary: Reports: None Neuro/Psych: Reports: Migraine, Anxiety, Depression Musculoskeletal: Reports: Arthritis, Back Pain, Joint Pain (shoulder pain Rotator cuff ) Cancer: Reports: None Other Pertinent Past Medical History: sleep apnea - Surgical History General Surgical History: Reports: Appendectomy, Orthopedic (2 bad disks in neck //scope of left knee with repair of the meniscous and cyst removed from back of knee 03/22/17) - Family History Family History: Reports: Hypertension - Social History Smoking Status: Current every day smoker, Light tobacco smoker Hx Substance Use: No Alcohol Screening: Heavy Physical Exam - Physical Exam Appearance: Well-appearing, No pain distress, Well-nourished Eyes: TOM, EOMI, Conjunctiva clear ENT: Ears normal, Nose normal, Oropharynx normal Respiratory: Airway patent, Breath sounds clear, Breath sounds equal, Respirations nonlabored Cardiovascular: RRR, Pulses normal, No rub, No murmur GI/: Soft, Nontender, No masses, Bowel sounds normal, No Organomegaly Musculoskeletal: Normal strength, ROM intact, No edema, No calf tenderness Skin: Warm, Dry, Normal color Neurological: Sensation intact, Motor intact, Reflexes intact, Cranial nerves intact, Alert, Oriented Psychiatric: Affect appropriate, Mood appropriate Critical Care Note - Critical Care Note Total Time (mins): 0 Departure - Departure Time of Disposition: 09:52 Disposition: HOME SELF-CARE Discharge Problem: Toothache Instructions: Toothache (ED) Condition: Good Pt referred to PMD for follow-up: Yes Additional Instructions: Please call your Family Physician as soon as possible to schedule a follow-up appointment. Allergies/Adverse Reactions: Allergies onion Allergy (Severe, Verified 06/01/17 01:18) Anaphylaxis Coconut Adverse Reaction (Verified 06/01/17 01:18) venom-honey bee [bee venom (honey bee)] Adverse Reaction (Verified 06/01/17 01: 18) venom-wasp [wasp venom] Adverse Reaction (Verified 06/01/17 01:18) Home Medications: Ambulatory Orders Atorvastatin Calcium [Lipitor] 20 mg PO BEDTIME 09/26/15 Cyclobenzaprine HCl [Flexeril] 10 mg PO TID 09/26/15 Budesonide/Formoterol Fumarate [Symbicort 160-4.5 Mcg Inhaler] 10.2 gm IH DAILY 03/20/17 Epinephrine 0.3 mg IJ PRN PRN 03/20/17 Fluticasone Propionate [Flovent Hfa] 10.6 gm IH DAILY 03/20/17 Albuterol Sulfate 0.083% Neb [Albuterol 0.083% Neb] 1 vial NEB PRN PRN 03/25/17 Guaifenesin/Codeine Phosphate [Robitussin AC Syrup] 10 ml PO Q6H PRN #240 ml Loratadine/Pseudoephedrine [Claritin-D 12 Hour Tablet] 1 each PO BID PRN #60 tab.er.12h 04/17/17 Magnesium Oxide [Mag-Ox] 400 mg PO DAILY #30 tablet 04/17/17 Amlodipine Besylate [Norvasc] 5 mg PO DAILY 06/01/17 Cholecalciferol (Vitamin D3) [Vitamin D3] 2,000 unit PO BID 06/01/17 Diclofenac Sodium 50 mg PO BID 06/01/17 Gabapentin [Neurontin] 200 mg PO TID 06/01/17 Hydrocodone/Acetaminophen [Hydrocodon-Acetaminoph 7.5-325] 1 tab PO QID Potassium Chloride [K-Dur] 20 meq PO DAILY 06/01/17 Sumatriptan Succinate [Imitrex] 50 mg PO DAILY PRN 06/01/17 Cephalexin [Keflex] 500 mg PO Q12HR #10 capsule 06/05/17 Losartan Potassium 100 mg PO DAILY #1 tablet 06/05/17 Methylprednisolone [Medrol Dosepak] 4 mg PO DIRECTED #1 tab.ds.pk 06/05/17 Metoprolol Tartrate [Lopressor] 100 mg PO DAILY #1 tablet 06/05/17 Disposition Discussed With: Patient
== END 2017-07-17 09:59 | disposition home or self-care (01) ==
LOC: ED 09:47
DX: K08.89 Other specified disorders of teeth and supporting structures (principal); K02.7 Dental root caries; S02.5XXA Fracture of tooth (traumatic), initial encounter for closed fracture; E78.5 Hyperlipidemia, unspecified; I10 Essential (primary) hypertension; F17.210 Nicotine dependence, cigarettes, uncomplicated; Z79.899 Other long term (current) drug therapy
CPT/HCPCS: 99282

== ENCOUNTER 2018-02-07 09:44 | Emergency (ER) ==
[2018-02-07 09:52] VITALS: BP 143/84; TEMP 98
--- NOTE | 2018-02-07 10:05 | ED.PDOC ---
General ED Provider: Dr. OSCAR YATES Chief Complaint: Knee Pain/Injury Stated Complaint: KNEE PAIN Time Seen by Physician: 10:00 Mode of Arrival: Walk-In Information Source: Patient Exam Limitations: No limitations Primary Care Provider: [facility] Nursing and Triage Documentation Reviewed and Agree: Yes Reviewed sepsis parameters & appropriate labs ordered?: Yes System Inflammatory Response Syndrome: Not Applicable Sepsis Protocol: For patient's 13 years and over: Temp is 96.8 and below OR 101 and greater Pulse >90 BPM Resp >20/minute Acutely Altered Mental Status Are patient's symptoms suggestive of a new infection, such as: -Pneumonia -Skin, Soft Tissue -Endocarditis -UTI -Bone, Joint Infection -Implantable Device -Acute Abdominal Infection -Wound Infection -Meningitis -Blood Stream Catheter Infection -Unknown System Inflammatory Response Syndrome: Not Applicable Musculoskeletal Complaint Exam - Knee Pain Complaint/Exam Mechanism of Injury: Reports: No known trauma Onset/Duration: 1 DAY AFTER A FALL Symptoms Are: Still present Onset of Pain: Reports: Immediate Initial Severity: Moderate Current Severity: Moderate Location: Reports: Discrete Character: Reports: Dull Alleviating: Reports: Rest Aggravating: Reports: Movement Associated Signs and Symptoms: Denies: Swelling, Redness, Bruising, Fever, Weakness, Numbness, Tingling Able to Bear Weight: Yes Related History: Reports: Similar episode Septic Arthritis Risk Factors: Reports: None Gout Risk Factors: Reports: >40 years old, Male Julia Test Positive: No Mary Test Positive: No Limited Range of Motion: Present: Passive, Flexion, Extension, Patellar apprehension Differential Diagnoses: Internal Derangement, Sprain, Strain Review of Systems - Review Of Systems Constitutional: Reports: No symptoms Eyes: Reports: No symptoms Ears, Nose, Mouth, Throat: Reports: No symptoms Respiratory: Reports: No symptoms Cardiac: Reports: No symptoms GI: Reports: No symptoms : Reports: No symptoms Musculoskeletal: Reports: Joint pain (LEFT KNEE) Skin: Reports: No symptoms Neurological: Reports: No symptoms Endocrine: Reports: No symptoms Hematologic/Lymphatic: Reports: No symptoms All Other Systems: Reviewed and Negative Past Medical History - Past Medical History Previously Healthy: No Endocrine: Reports: Dyslipidemia Cardiovascular: Reports: Hypertension Respiratory: Reports: COPD, Asthma Hematological: Reports: None Gastrointestinal: Reports: None Genitourinary: Reports: None Neuro/Psych: Reports: Migraine, Anxiety, Depression Musculoskeletal: Reports: Arthritis, Back Pain, Joint Pain (shoulder pain Rotator cuff ) Cancer: Reports: None Other Pertinent Past Medical History: sleep apnea - Surgical History General Surgical History: Reports: Appendectomy, Orthopedic (2 bad disks in neck //scope of left knee with repair of the meniscous and cyst removed from back of knee 03/22/17) - Family History Family History: Reports: Hypertension - Social History Smoking Status: Current every day smoker, Light tobacco smoker Hx Substance Use: No Alcohol Screening: Heavy Physical Exam - Physical Exam Appearance: Well-appearing, No pain distress, Well-nourished Eyes: TOM, EOMI, Conjunctiva clear ENT: Ears normal, Nose normal, Oropharynx normal Respiratory: Airway patent, Breath sounds clear, Breath sounds equal, Respirations nonlabored Cardiovascular: RRR, Pulses normal, No rub, No murmur GI/: Soft, Nontender, No masses, Bowel sounds normal, No Organomegaly Musculoskeletal: Limited ROM (LEFT KNEE ) Skin: Warm, Dry, Normal color Neurological: Sensation intact, Motor intact, Reflexes intact, Cranial nerves intact, Alert, Oriented Psychiatric: Affect appropriate, Mood appropriate Critical Care Note - Critical Care Note Total Time (mins): 0 Course - Course Orders, Labs, Meds: Orders Category Date Time Status KNEE, LEFT 4 VIEWS Stat RADS 02/07/18 10:05 Ordered Vital Signs: Temp Pulse Resp BP Pulse Ox 02/07/18 09:45 98 F 112 H 20 143/84 H 93 L Departure - Departure Time of Disposition: 10:20 Disposition: HOME SELF-CARE Discharge Problem: Knee pain Instructions: Knee Pain (ED), Arthralgia (ED) Condition: Good Pt referred to PMD for follow-up: Yes IPMP verified?: No Additional Instructions: Please call your Family Physician as soon as possible to schedule a follow-up appointment. Allergies/Adverse Reactions: Allergies onion Allergy (Severe, Verified 02/07/18 09:53) Anaphylaxis Coconut Adverse Reaction (Verified 02/07/18 09:53) venom-honey bee [bee venom (honey bee)] Adverse Reaction (Verified 02/07/18 09: 53) venom-wasp [wasp venom] Adverse Reaction (Verified 02/07/18 09:53) Home Medications: Ambulatory Orders Atorvastatin Calcium [Lipitor] 20 mg PO BEDTIME 10/31/15 Cyclobenzaprine HCl [Flexeril] 10 mg PO TID 09/26/15 Budesonide/Formoterol Fumarate [Symbicort 160-4.5 Mcg Inhaler] 10.2 gm IH DAILY 03/20/17 Epinephrine 0.3 mg IJ PRN PRN 03/20/17 Fluticasone Propionate [Flovent Hfa] 10.6 gm IH DAILY 03/20/17 Albuterol Sulfate 0.083% Neb [Albuterol 0.083% Neb] 1 vial NEB PRN PRN 03/25/17 Loratadine/Pseudoephedrine [Claritin-D 12 Hour Tablet] 1 each PO BID PRN #60 tab.er.12h 04/17/17 Magnesium Oxide [Mag-Ox] 400 mg PO DAILY #30 tablet 04/17/17 Amlodipine Besylate [Norvasc] 5 mg PO DAILY 06/01/17 Cholecalciferol (Vitamin D3) [Vitamin D3] 2,000 unit PO BID 06/01/17 Diclofenac Sodium 50 mg PO BID 06/01/17 Hydrocodone/Acetaminophen [Hydrocodon-Acetaminoph 7.5-325] 1 tab PO QID Potassium Chloride [K-Dur] 20 meq PO DAILY 06/01/17 Sumatriptan Succinate [Imitrex] 50 mg PO DAILY PRN 06/01/17 Losartan Potassium 100 mg PO DAILY #1 tablet 06/05/17 Metoprolol Tartrate [Lopressor] 100 mg PO DAILY #1 tablet 06/05/17
[2018-02-07 10:30] VITALS: BMI 29.8
--- NOTE | 2018-02-07 10:42 | DI ---
EXAM: Radiographs, left knee HISTORY: Left knee pain. COMPARISON: 01/11/2017. TECHNIQUE: Four views. FINDINGS: Bone mineralization is normal. There is no fracture or dislocation. Mild medial and lucero llofemoral compartment osteoarthritis noted. No focal soft tissue abnormality is seen. Since the alma or study, there has been no significant interval change. IMPRESSION: No fracture or dislocation.
== END 2018-02-07 11:21 | disposition home or self-care (01) ==
LOC: ED 09:44
DX: M25.562 Pain in left knee (principal); F17.210 Nicotine dependence, cigarettes, uncomplicated; W19.XXXA Unspecified fall, initial encounter
CPT/HCPCS: 99283

== ENCOUNTER 2018-05-11 01:13 | Outpatient (CLI) ==
[2013-05-24 11:45] VITALS: TEMP 98.1
[2018-05-11 05:05] VITALS: BMI 30.1
== END 2018-05-11 01:15 | disposition critical access hospital (66) ==
LOC: AMBL 01:13
PROVIDERS: ATTEND Emergency Medicine
DX: J45.901 Unspecified asthma with (acute) exacerbation (principal); R09.2 Respiratory arrest

== ENCOUNTER 2018-05-11 01:16 | Inpatient (IN) | payer OTHER ==
[2018-05-11] MEDS ORDERED: DUONEB NEB ONE ×2 (01:20→01:45)
[2018-05-11] MEDS ORDERED: MORPHINE 4 MG/ML SYRINGE IVP STA ×2 (01:22→08:21)
[2018-05-11] MEDS ORDERED: DUONEB NEB STA ×2 (01:22→03:00)
[2018-05-11] MEDS ORDERED: SOLU-MEDROL 125 MG IVP STA (01:22)
[2018-05-11] MEDS ORDERED: XOPENEX 1.25 MG NEB ONE (01:27)
[2018-05-11] MEDS ORDERED: VERSED IVP STA (01:30)
[2018-05-11] MEDS ORDERED: VERSED ONE (01:31)
[2018-05-11] MEDS ORDERED: AMIDATE IVP ONE (01:37)
[2018-05-11] MEDS ORDERED: AMIDATE IVP STA (01:37)
[2018-05-11] MEDS ORDERED: DIPRIVAN 100 ML VIAL 200 ML IV ONE (01:44)
[2018-05-11] MEDS: DIPRIVAN 100 ML VIAL 1,000 MG in PREMIX INFUSION 100 ML VIAL 1 VIAL IV SCH ×5 (01:47→12:21)
[2018-05-11] MEDS ORDERED: DIPRIVAN 100 ML VIAL 100 ML IV ONE ×5 (01:47→08:10)
[2018-05-11] MEDS ORDERED: SUBLIMAZE ONE ×2 (01:53→02:40)
--- NOTE | 2018-05-11 02:18 | ED.PDOC ---
General ED Provider: Dr. MORAIMA DUTTA Chief Complaint: Shortness of Air Stated Complaint: 911 called as patient was short of breath, has h/o asthma, cocaine use,. patient was not able to give any h/o how long he is been sick, given Solumedrol and breathing treatements and Intuabated in ER by [employer]. Time Seen by Physician: 02:16 Mode of Arrival: Ambulance Information Source: EMT Primary Care Provider: M[facility]IM[facility]TA[facility] Nursing and Triage Documentation Reviewed and Agree: Yes Reviewed sepsis parameters & appropriate labs ordered?: Yes System Inflammatory Response Syndrome: Not Applicable Sepsis Protocol: For patient's 13 years and over: Temp is 96.8 and below OR 101 and greater Pulse >90 BPM Resp >20/minute Acutely Altered Mental Status Are patient's symptoms suggestive of a new infection, such as: -Pneumonia -Skin, Soft Tissue -Endocarditis -UTI -Bone, Joint Infection -Implantable Device -Acute Abdominal Infection -Wound Infection -Meningitis -Blood Stream Catheter Infection -Unknown Respiratory Complaint Exam - Asthma Complaint/Exam Symptoms Are: Still present Timing: Constant Initial Severity: Severe Current Severity: Severe Character: Reports: Wheezing, Productive cough Aggravating: Reports: URI, Allergens Alleviating: Reports: None Associated Signs and Symptoms: Reports: SOA, URI. Denies: Fever, Chest pain, Edema, Calf pain, Sinus infection, Rapid breathing, Labored breathing Related History: Reports: Similar episode Related Surgical History: Reports: None Status Asthmaticus Risk Factors: Reports: Rx non-compliance Current Asthma Medication Usage: Yes Recent Antibiotics: No Respiratory Distress: Severe Accessory Muscle Use: Yes Retractions: Nasal Flaring, Supraclavicular Diminished Breath Sounds: Yes Prolonged Expiratory Phase: Yes Unable to Speak Full Sentences: Yes Fatigue Present: Yes Differential Diagnoses: Acute Asthma Review of Systems - Review Of Systems Constitutional: Reports: No symptoms Eyes: Reports: No symptoms Ears, Nose, Mouth, Throat: Reports: No symptoms Respiratory: Reports: Short of air Cardiac: Reports: No symptoms GI: Reports: No symptoms : Reports: No symptoms Musculoskeletal: Reports: No symptoms Skin: Reports: No symptoms Neurological: Reports: No symptoms Endocrine: Reports: No symptoms Hematologic/Lymphatic: Reports: No symptoms All Other Systems: Reviewed and Negative Past Medical History - Past Medical History Previously Healthy: No Endocrine: Reports: Dyslipidemia Cardiovascular: Reports: Hypertension Respiratory: Reports: COPD, Asthma Hematological: Reports: None Gastrointestinal: Reports: None Genitourinary: Reports: None Neuro/Psych: Reports: Migraine, Anxiety, Depression Musculoskeletal: Reports: Arthritis, Back Pain, Joint Pain (shoulder pain Rotator cuff ) Cancer: Reports: None Other Pertinent Past Medical History: sleep apnea - Surgical History General Surgical History: Reports: Appendectomy, Orthopedic (2 bad disks in neck //scope of left knee with repair of the meniscous and cyst removed from back of knee 03/22/17) - Family History Family History: Reports: Hypertension - Social History Smoking Status: Current every day smoker, Light tobacco smoker Hx Substance Use: Yes (cocaine) Alcohol Screening: Heavy - Immunizations Tetanus Shot up to Date: No (unknown) Physical Exam - Physical Exam Appearance: Ill-appearing, Obese Ill-appearing: Severe Eyes: TOM, EOMI, Conjunctiva clear ENT: Ears normal, Nose normal, Oropharynx normal Respiratory: Breath sounds diminished, Crackles, Wheezes Cardiovascular: Tachycardia GI/: Soft, Nontender, No masses, Bowel sounds normal, No Organomegaly Musculoskeletal: Normal strength, ROM intact, No edema, No calf tenderness Skin: Warm, Dry, Normal color Neurological: Sensation intact, Motor intact, Reflexes intact, Cranial nerves intact, Alert, Oriented Psychiatric: Affect appropriate, Mood appropriate Interpretation - Radiology Interpretation Radiology Interpretation By: ED Physician Radiology Results: Positive Critical Care Note - Critical Care Note Total Time (mins): 30 Course - Course Hematology/Chemistry: 05/11/18 02:00 Orders, Labs, Meds: Lab Review 05/11/18 05/11/18 05/11/18 01:22 02:00 02:00 WBC 6.66 RBC 4.00 L Hgb 13.2 L Hct 38.3 L MCV 95.8 H MCH 33.0 H MCHC 34.5 RDW Coeff of Angélica 12.4 Plt Count 293 Immature Gran % (Auto) 0.2 Neut % (Auto) 34.6 Lymph % (Auto) 56.2 H Gilchrist % (Auto) 7.2 Eos % (Auto) 1.2 Baso % (Auto) 0.6 Immature Gran # (Auto) 0.0 Neut # (Auto) 2.3 Lymph # (Auto) 3.7 H Gilchrist # (Auto) 0.5 Eos # (Auto) 0.1 Baso # (Auto) 0.0 Puncture Site Lr O2 Saturation 100.0 ABG pH 7.384 ABG pCO2 38.8 ABG pO2 376.0 H ABG HCO3 23.2 ABG Total CO2 24 ABG Base Excess -2 Jerome Test + O2 Delivery Device Ambu Oxygen Liter Flow 15.00 FiO2 % 100.0 B-Natriuretic Peptide 15 Orders Category Date Time Status ABG DRAW REQUEST Stat CARDIO 05/11/18 01:23 Ordered EKG-(ED ONLY) Stat CARDIO 05/11/18 01:22 Ordered NEBULIZER TREATMENT Stat CARDIO 05/11/18 01:23 Ordered ED IV/MEDIPORT/POWERPORT .ONCE EMERGENCY 05/11/18 01:22 Active ABG Stat LAB 05/11/18 01:22 Completed B-TYPE NATRIURETIC PEPTIDE Stat LAB 05/11/18 02:00 Completed CBC W/ AUTO DIFF Stat LAB 05/11/18 02:00 Completed COMPREHENSIVE METABOLIC PANEL Stat LAB 05/11/18 02:00 Received CREATINE KINASE Stat LAB 05/11/18 02:00 Received TROPONIN I Stat LAB 05/11/18 02:00 Received URINALYSIS C & S IF INDICATED Stat LAB 05/11/18 01:23 Uncollected URINE DRUG SCREEN (RAPID FOR ED) [DRUG SCREEN, URINE, LAB 05/11/18 01:23 Uncollected RAPID] Stat 0.9 % Sodium Chloride [Saline Flush] MEDS 05/11/18 01:22 Ordered 1 syr IVF PRN PRN 0.9 % Sodium Chloride [Sodium Chloride] 80 ml MEDS 05/11/18 03:00 Ordered Labetalol HCl [Trandate] 10 mg IV 1 mg/min Ceftriaxone Sodium [Rocephin] 1 gm MEDS 05/11/18 02:21 Active 0.9 % Sodium Chloride [Sodium Chloride] 50 ml IV ONCE Etomidate [Amidate] MEDS 05/11/18 01:37 Discontinued 20 mg IVP .STK-MED ONE Fentanyl Vial [Sublimaze] MEDS 05/11/18 01:53 Discontinued 100 mcg .ROUTE .STK-MED ONE Ipratropium/Albuterol Neb [Duoneb] MEDS 05/11/18 01:20 Discontinued 1 vial NEB .STK-MED ONE Ipratropium/Albuterol Neb [Duoneb] MEDS 05/11/18 01:22 Discontinued 1 vial NEB ONCE STA Ipratropium/Albuterol Neb [Duoneb] MEDS 05/11/18 01:45 Discontinued 3 vial NEB .STK-MED ONE Levalbuterol HCl [Xopenex 1.25 mg] MEDS 05/11/18 01:27 Discontinued 1 vial NEB .STK-MED ONE Methylprednisolone Sod Succ/Pf [Solu-Medrol 125 mg] MEDS 05/11/18 01:22 Discontinued 125 mg IVP ONCE STA Midazolam HCl Inj [Versed] MEDS 05/11/18 01:31 Discontinued 10 mg .ROUTE .STK-MED ONE Morphine Sulfate [Morphine 4 mg/ml Syringe] MEDS 05/11/18 01:22 Discontinued 2 mg IVP ONCE STA Propofol Inj [Diprivan 100 ml Vial] 100 ml MEDS 05/11/18 01:44 Discontinued IV .STK-MED CHEST, 1V AP ONLY Stat RADS 05/11/18 01:22 Completed Medications Generic Name Dose Route Start Last Admin Trade Name Freq PRN Reason Stop Dose Admin Ceftriaxone Sodium 1 gm/ 50 mls @ 75 mls/hr 05/11/18 02:21 Sodium Chloride IV 05/11/18 03:00 ONCE STA Labetalol HCl 10 mg/ Sodium 82 mls @ 492 mls/hr 05/11/18 03:00 Chloride IV .Q10M ELVIS Protocol 1 MG/MIN Sodium Chloride 1 syr 05/11/18 01:22 Saline Flush IVF PRN PRN To flush IV Discontinued Medications Generic Name Dose Route Start Last Admin Trade Name Freq PRN Reason Stop Dose Admin Albuterol/Ipratropium 1 vial 05/11/18 01:22 Duoneb NEB 05/11/18 01:23 ONCE STA Methylprednisolone Sodium Succinate 125 mg 05/11/18 01:22 Solu-Medrol 125 Mg IVP 05/11/18 01:23 ONCE STA Morphine Sulfate 2 mg 05/11/18 01:22 Morphine 4 Mg/Ml Syringe IVP 05/11/18 01:23 ONCE STA Vital Signs: Temp Pulse Resp BP Pulse Ox 05/11/18 01:20 97.2 F L 117 H 8 L 148/98 H 98 Departure - Departure Time of Disposition: 02:39 Disposition: ADMITTED INPATIENT Discharge Problem: Asthma exacerbation Qualifiers: Asthma severity: severe Asthma persistence: persistent Qualified Code(s): J45.51 - Severe persistent asthma with (acute) exacerbation Instructions: Asthma (ED) Condition: Critical Pt referred to PMD for follow-up: No IPMP verified?: No Allergies/Adverse Reactions: Allergies onion Allergy (Severe, Verified 05/11/18 01:34) Anaphylaxis Coconut Adverse Reaction (Verified 05/11/18 01:34) venom-honey bee [bee venom (honey bee)] Adverse Reaction (Verified 05/11/18 01: 34) venom-wasp [wasp venom] Adverse Reaction (Verified 05/11/18 01:34) Home Medications: Ambulatory Orders Atorvastatin Calcium [Lipitor] 20 mg PO BEDTIME 09/26/15 Cyclobenzaprine HCl [Flexeril] 10 mg PO TID 09/26/15 Budesonide/Formoterol Fumarate [Symbicort 160-4.5 Mcg Inhaler] 10.2 gm IH DAILY 03/20/17 Epinephrine 0.3 mg IJ PRN PRN 03/20/17 Fluticasone Propionate [Flovent Hfa] 10.6 gm IH DAILY 03/20/17 Albuterol Sulfate 0.083% Neb [Albuterol 0.083% Neb] 1 vial NEB PRN PRN 03/25/17 Loratadine/Pseudoephedrine [Claritin-D 12 Hour Tablet] 1 each PO BID PRN #60 tab.er.12h 04/17/17 Magnesium Oxide [Mag-Ox] 400 mg PO DAILY #30 tablet 04/17/17 Amlodipine Besylate [Norvasc] 5 mg PO DAILY 06/01/17 Cholecalciferol (Vitamin D3) [Vitamin D3] 2,000 unit PO BID 06/01/17 Diclofenac Sodium 50 mg PO BID 06/01/17 Hydrocodone/Acetaminophen [Hydrocodon-Acetaminoph 7.5-325] 1 tab PO QID Potassium Chloride [K-Dur] 20 meq PO DAILY 06/01/17 Sumatriptan Succinate [Imitrex] 50 mg PO DAILY PRN 06/01/17 Losartan Potassium 100 mg PO DAILY #1 tablet 06/05/17 Metoprolol Tartrate [Lopressor] 100 mg PO DAILY #1 tablet 06/05/17 Hydrocodone/Acetaminophen [[place] 10-325 Tablet] 1 each PO Q8HR #3 tablet Transfer Form Completed: Yes Disposition Discussed With: Patient, Family
[2018-05-11] MEDS ORDERED: ROCEPHIN 1 GM in SODIUM CHLORIDE 50 ML IV STA (02:21)
--- NOTE | 2018-05-11 02:38 | DI ---
EXAM: Chest, single view, 05/11/2018 HISTORY: Shortness of breath COMPARISON: 06/01/2017 FINDINGS / IMPRESSION: Cardiomediastinal contours appear enlarged. Endotracheal tube appears well p ositioned. Basilar interstitial prominence may relate to atelectasis. There is no focal pulmonary consolidation. No pleural effusion or pneumothorax.
[2018-05-11] MEDS ORDERED: ROCEPHIN ONE (02:44)
[2018-05-11] MEDS ORDERED: DUONEB NEB PRN (02:58)
[2018-05-11] MEDS ORDERED: SODIUM CHLORIDE IV SCH (03:00)
[2018-05-11] MEDS ORDERED: TRANDATE IV SCH (03:00)
[2018-05-11] MEDS ORDERED: SODIUM CHLORIDE 1,000 ML IV SCH (03:00)
[2018-05-11] MEDS ORDERED: SOLU-MEDROL 125 MG IVP SCH (03:00)
[2018-05-11] MEDS ORDERED: SUBLIMAZE IVP STA ×2 (03:05→03:25)
[2018-05-11] MEDS ORDERED: ZEMURON IVP STA ×4 (03:05→08:05)
[2018-05-11] MEDS ORDERED: ANECTINE IVP STA (03:05)
[2018-05-11] MEDS ORDERED: URO-JET MUCOUSMEMB STA (03:25)
--- NOTE | 2018-05-11 03:45 | ED.PDOC ---
Procedures - Intubation Indication: Present: Respiratory Insufficiency Time of Intubation: 02:10 Medications: Yes: Succinylcholine, Propofol (see nsg notes for dosages and times ) Type of Tube Used: Endotracheal Tube Size: 7 Cricoid Pressure Used: No Tube Martinez Used: Yes Position of Tube at Lip: 24 Number of Attempts: 1 Suction Used: Yes Glidescope Used: No CO2 Detector Used: Yes Lung Sounds Equal Bilaterally: Yes Intubation Complications: Present: No complications Tube Inserted By: Yoandy Dill CRNA Tube Placement Verified by X-ray: Yes Conscious Sedation - Pre-op Assessment Weight: 222 lb 7.143 oz Surgical History: STATES, "2 bad disks in neck". scope of left knee with repair of the meniscous and cyst removed from back of knee 03/22/17 - Medical History Past Medical History: Hypertension, COPD, Asthma, Migraines Other History: sleep apnea - Physical Exam Heart Rate/Rhythm: Tachycardia
--- NOTE | 2018-05-11 03:46 | ED.PDOC ---
Procedures - IV/Art Line Insertion Location: lt radial Type of Line: Other (Arterial stick for ABGs) Blood Return Positive: Yes Conscious Sedation - Pre-op Assessment Weight: 222 lb 7.143 oz Surgical History: STATES, "2 bad disks in neck". scope of left knee with repair of the meniscous and cyst removed from back of knee 03/22/17 - Medical History Past Medical History: Hypertension, COPD, Asthma, Migraines Other History: sleep apnea - Physical Exam Heart Rate/Rhythm: Tachycardia
[2018-05-11 05:05] VITALS: BMI 30.1
[2018-05-11] MEDS: XOPENEX 1.25 MG NEB SCH ×4 (05:23→22:20)
[2018-05-11] MEDS ORDERED: XOPENEX 1.25 MG NEB SCH (06:00)
[2018-05-11] MEDS ORDERED: TRANDATE IVP PRN (07:47)
[2018-05-11] MEDS: SODIUM CHLORIDE 0.9%-KCL 40MEQ 1,000 ML IV SCH (08:15)
[2018-05-11] MEDS: LOVENOX SUBCUT SCH (08:19)
[2018-05-11] MEDS ORDERED: MORPHINE 4 MG/ML VIAL ONE (08:22)
[2018-05-11] MEDS ORDERED: MORPHINE 4 MG/ML VIAL IVP STA (08:26)
[2018-05-11] MEDS ORDERED: ZEMURON IVP PRN (08:31)
[2018-05-11] MEDS ORDERED: MORPHINE 2 MG/ML SYRINGE IVP PRN (11:53)
[2018-05-11] MEDS ORDERED: ZOFRAN 4 MG/2 ML IVP PRN (11:53)
[2018-05-11] MEDS ORDERED: TRANDATE IVP STA (12:40)
[2018-05-11] MEDS: SOLU-MEDROL 125 MG IVP SCH ×2 (12:50→20:55)
[2018-05-11] MEDS: HYDROCHLOROTHIAZIDE PO SCH (15:50)
[2018-05-11] MEDS: COZAAR PO SCH (15:50)
[2018-05-11] MEDS: FLEXERIL PO SCH ×2 (15:51→20:55)
[2018-05-11] MEDS: NORVASC PO SCH (15:51)
[2018-05-11] MEDS: LOPRESSOR PO SCH ×2 (15:51→20:56)
[2018-05-11] MEDS ORDERED: ATIVAN IVP STA (17:10)
[2018-05-11] MEDS ORDERED: LASIX IVP STA (17:10)
[2018-05-11] MEDS: NORCO 7.5-325 PO SCH ×2 (17:38→20:55)
[2018-05-11] MEDS: ROCEPHIN 1 GM in SODIUM CHLORIDE 50 ML IV SCH (20:55)
[2018-05-12] MEDS: SOLU-MEDROL 125 MG IVP SCH ×3 (04:14→20:59)
[2018-05-12] MEDS: SODIUM CHLORIDE 0.9%-KCL 40MEQ 1,000 ML IV SCH (04:21)
[2018-05-12] MEDS: XOPENEX 1.25 MG NEB SCH ×4 (05:15→22:10)
[2018-05-12] MEDS: HYDROCHLOROTHIAZIDE PO SCH (09:31)
[2018-05-12] MEDS: NORCO 7.5-325 PO SCH ×4 (09:32→20:59)
[2018-05-12] MEDS: NORVASC PO SCH (09:32)
[2018-05-12] MEDS: FLEXERIL PO SCH ×3 (09:32→21:00)
[2018-05-12] MEDS: LOPRESSOR PO SCH ×2 (09:32→20:59)
[2018-05-12] MEDS: LOVENOX SUBCUT SCH (09:33)
[2018-05-12] MEDS: COZAAR PO SCH (09:35)
--- NOTE | 2018-05-12 10:25 | DI ---
EXAM: Single view of the chest. History: Extubation Comparison: Chest radiograph 05/11/2018 Findings: Heart size is upper limits of normal. No focal consolidation. No appreciable pleural flu id and no pneumothorax. Interval removal of endotracheal tube. No acute osseous abnormalities. Impression: No acute cardiopulmonary process. Interval removal of endotracheal tube
[2018-05-12] MEDS ORDERED: K-DUR PO STA (13:23)
[2018-05-12] MEDS: ROCEPHIN 1 GM in SODIUM CHLORIDE 50 ML IV SCH (20:59)
[2018-05-13] MEDS ORDERED: POTASSIUM CHLORIDE 20 MEQ VIAL-ADDITIVE ONLY IV ONE (00:34)
[2018-05-13] MEDS: SODIUM CHLORIDE 0.9%-KCL 40MEQ 1,000 ML IV SCH (00:40)
[2018-05-13] MEDS: XOPENEX 1.25 MG NEB SCH ×4 (04:42→22:17)
[2018-05-13] MEDS: SOLU-MEDROL 125 MG IVP SCH ×3 (05:20→20:38)
[2018-05-13] MEDS: NORVASC PO SCH (08:53)
[2018-05-13] MEDS: HYDROCHLOROTHIAZIDE PO SCH (08:54)
[2018-05-13] MEDS: NORCO 7.5-325 PO SCH ×4 (08:54→20:56)
[2018-05-13] MEDS: FLEXERIL PO SCH ×3 (08:55→20:38)
[2018-05-13] MEDS: LOPRESSOR PO SCH ×2 (08:55→20:38)
[2018-05-13] MEDS: COZAAR PO SCH (08:55)
[2018-05-13] MEDS: LOVENOX SUBCUT SCH (08:57)
[2018-05-13] MEDS: ROCEPHIN 1 GM in SODIUM CHLORIDE 50 ML IV SCH (20:38)
[2018-05-14] MEDS: SOLU-MEDROL 125 MG IVP SCH ×3 (04:21→20:59)
[2018-05-14] MEDS: XOPENEX 1.25 MG NEB SCH ×4 (04:30→23:49)
[2018-05-14] MEDS: SODIUM CHLORIDE 0.9%-KCL 40MEQ 1,000 ML IV SCH ×2 (07:17→16:08)
[2018-05-14] MEDS: KEFLEX PO SCH ×2 (09:08→20:11)
[2018-05-14] MEDS: NORVASC PO SCH (09:09)
[2018-05-14] MEDS: FLEXERIL PO SCH ×3 (09:09→20:11)
[2018-05-14] MEDS: COZAAR PO SCH (09:09)
[2018-05-14] MEDS: LOPRESSOR PO SCH (09:09)
[2018-05-14] MEDS: HYDROCHLOROTHIAZIDE PO SCH (09:09)
[2018-05-14] MEDS: NORCO 7.5-325 PO SCH ×4 (09:10→20:11)
[2018-05-14] MEDS: LOVENOX SUBCUT SCH (09:11)
--- NOTE | 2018-05-14 13:15 | PN ---
DATE OF SERVICE: 05/12/18 SUBJECTIVE: The patient was admitted from the emergency room for the hypoxemic respiratory failure and asthmatic exacerbation. Cocaine is positive. Blood pressure is still elevated. REVIEW OF SYSTEMS: CONSTITUTIONAL: No fever, no chills. HEENT: Normal. ENDOCRINE: No weight gain, no weight loss. CVS: No angina symptoms. No CHF symptoms. No palpitations. No atypical chest pain for CAD. Shortness of breath not been improved. No PND, no orthopnea. RESPIRATORY: More cough and congestion, no hemoptysis. GI: No nausea, no vomiting. No abdominal pain. : No hematuria. No polyuria. MUSCULOSKELETAL: No joint swelling. PSYCHIATRIC: Not anxious. No depression. No suicidal thoughts. No homicidal thoughts. SKIN: Intact. No rash. PHYSICAL EXAMINATION: V/S: Blood pressure 144/79, respiratory rate 16, heart rate 87 and temperature 97.8 with saturation is 98%. HEENT: Normocephalic, atraumatic. Mucosa dry. Pallor positive. No icterus. NECK: Supple. No JVD, no carotid bruit. No lymphadenopathy. LUNGS: Decreased and basilar crackles. Mild wheezing in the upper back. No rales or rhonchi. HEART: S1, S2 normal. No S3. No murmur, gallop or regurgitation. ABDOMEN: Soft, nontender. Bowel sounds active. No rigidity. No rebound or guarding. No CVA tenderness. EXTREMITIES: No cyanosis, clubbing or pedal edema. MUSCULOSKELETAL: No joint swelling. NEUROLOGIC: Awake, alert, oriented times three. No focal deficit. LYMPHATIC: No lymph nodes palpable. SKIN: Intact. LABS: WBC 12.63m, hgb 12.7, hct 36.5, plt count 264, sodium 144, potassium 3.2, chloride 111, bicarb 20, BUN 9, creatinine 0.99 and glucose 101. ASSESSMENT: 1. Asthmatic exacerbation 2. Uncontrolled hypertension 3. Hypertensive urgency 4. Cocaine use 5. Osteoarthritis 6. DJD spine 7. Substance use disorder PLAN: 1. Continue the Rocephin 1 gram daily 2. Lovenox 3. DUO NEBS 4. Lorazepam PRN 5. Lopressor 6. Losartan 7. IV fluids at ml per hour TIME SPENT: More than 35 minutes MTDD
[2018-05-14] MEDS ORDERED: LOPRESSOR PO SCH (21:00)
[2018-05-15] MEDS: SOLU-MEDROL 125 MG IVP SCH ×3 (05:16→21:57)
[2018-05-15] MEDS: XOPENEX 1.25 MG NEB SCH ×4 (05:32→22:59)
[2018-05-15] MEDS: HYDROCHLOROTHIAZIDE PO SCH (08:53)
[2018-05-15] MEDS: KEFLEX PO SCH ×2 (08:54→21:13)
[2018-05-15] MEDS: FLEXERIL PO SCH ×3 (08:54→21:13)
[2018-05-15] MEDS: COZAAR PO SCH (08:54)
[2018-05-15] MEDS: NORVASC PO SCH (08:55)
[2018-05-15] MEDS: NORCO 7.5-325 PO SCH ×4 (08:55→21:12)
[2018-05-15] MEDS: TRANDATE PO SCH ×3 (09:01→21:13)
[2018-05-15] MEDS: LOVENOX SUBCUT SCH (09:01)
--- NOTE | 2018-05-15 09:23 | PN ---
DATE OF SERVICE: 05/11/18 SUBJECTIVE: The patient was admitted from the emergency room for the asthma exacerbation, cocaine over use. The patient was intubated in the emergency room. At the time of examining the patient the patient is still on the ventilator on 50% oxygen is 100%. Getting the Propofol at 50mg. REVIEW OF SYSTEMS: Could not be done. CONSTITUTIONAL: No fever, no chills. HEENT: Normal. ENDOCRINE: No weight gain, no weight loss. CVS: No angina symptoms. No CHF symptoms. No palpitations. No atypical chest pain for CAD. No shortness of breath. No PND, no orthopnea. RESPIRATORY: No cough, no hemoptysis. GI: No nausea, no vomiting. No abdominal pain. : No hematuria. No polyuria. MUSCULOSKELETAL: No joint swelling. PSYCHIATRIC: Not anxious. No depression. No suicidal thoughts. No homicidal thoughts. SKIN: Intact. No rash. PHYSICAL EXAMINATION: V/S: Blood pressure 156/94, heart rate 96, temperature 98, saturation 96 on 2 liters. HEENT: Normocephalic, atraumatic. Mucosa dry. Pallor positive. No icterus. NECK: Supple. No JVD, no carotid bruit. No lymphadenopathy. LUNGS: Decreased and basilar crackles. Mild expiratory wheeze. No rales or rhonchi. HEART: S1, S2 normal. No S3. No murmur, gallop or regurgitation. ABDOMEN: Soft, nontender. Bowel sounds active. No rigidity. No rebound or guarding. No CVA tenderness. EXTREMITIES: No cyanosis, clubbing or pedal edema. MUSCULOSKELETAL: No joint swelling. NEUROLOGIC: Awake, alert, oriented times three. No focal deficit. LYMPHATIC: No lymph nodes palpable. SKIN: Intact. LABS: WBC 4.34, hgb 13.0, hct 37.7, plt count 244, sodium 144, potassium 3.2, chloride 111, bicarb 20, BUN 9, creatinine 0.99 ASSESSMENT: 1. Respiratory failure secondary to the asthma exacerbation 2. Cocaine use 3. Hypertension uncontrolled 4. Osteoarthritis 5. DJD spine PLAN: 1. Admit the patient to the regular floor 2. CBC and CMP today and daily 3. Cardiac enzymes and Troponin 4. Accu-checks with coverage 5. Rocephin 1 gram daily 6. Daily I&O's 7. Labetalol IV push q.6 hours PRN TIME SPENT: More than 35-40 minutes Critical Care time. MTDD
--- NOTE | 2018-05-15 09:46 | PN ---
DATE OF SERVICE: 05/14/18 SUBJECTIVE: The patient still coughing and congestion. No fever or chills. Blood pressure is still elevated. Still complains of some sore throat hurts every time he is trying to eat food or swallow. REVIEW OF SYSTEMS: CONSTITUTIONAL: No fever, no chills. HEENT: Normal. ENDOCRINE: No weight gain, no weight loss. CVS: No angina symptoms. No CHF symptoms. No palpitations. No atypical chest pain for CAD. No shortness of breath. No PND, no orthopnea. RESPIRATORY: No cough, no hemoptysis. GI: No nausea, no vomiting. No abdominal pain. : No hematuria. No polyuria. MUSCULOSKELETAL: No joint swelling. PSYCHIATRIC: Not anxious. No depression. No suicidal thoughts. No homicidal thoughts. SKIN: Intact. No rash. PHYSICAL EXAMINATION: V/S: Blood pressure 160/103, respiratory rate 12, heart rate 85, temperature 97.6 with saturation 97%. HEENT: Normocephalic, atraumatic. Mucosa dry. NECK: Supple. No JVD, no carotid bruit. No lymphadenopathy. LUNGS: Basilar crackles. No rales or rhonchi. HEART: S1, S2 normal. No S3. No murmur, gallop or regurgitation. ABDOMEN: Soft, nontender. Bowel sounds active. No rigidity. No rebound or guarding. No CVA tenderness. EXTREMITIES: No cyanosis, clubbing or pedal edema. MUSCULOSKELETAL: No joint swelling. NEUROLOGIC: Awake, alert, oriented times three. No focal deficit. LYMPHATIC: No lymph nodes palpable. SKIN: Intact. LABS: Sodium 137, potassium 3.9, chloride 104, bicarb 25, BUN 15, creatinine 0.77, glucose 190, WBC 12.67, hgb 12.7, hct 36.5, plt count 264. ASSESSMENT: 1. Status post respiratory failure 2. Asthmatic exacerbation secondary to the bronchitis 3. Cocaine use and dependancy 4. Hypertension, uncontrolled 5. Osteoarthritis 6. Sleep apnea on CPAP 7. Hypertension 8. Dyslipidemia PLAN: 1. Increase the Metoprolol 200mg twice a day 2. Stop the IV fluids 3. Out of bed to chair activity as tolerated TIME SPENT: More than 35 minutes MTDD
--- NOTE | 2018-05-15 09:52 | PN ---
DATE OF SERVICE: 05/13/18 SUBJECTIVE: The patient coughing and congested otherwise no fever or chills. REVIEW OF SYSTEMS: CONSTITUTIONAL: No fever, no chills. HEENT: Normal. ENDOCRINE: No weight gain, no weight loss. CVS: No angina symptoms. No CHF symptoms. No palpitations. No atypical chest pain for CAD. No shortness of breath. No PND, no orthopnea. RESPIRATORY: Cough, no hemoptysis. GI: No nausea, no vomiting. No abdominal pain. : No hematuria. No polyuria. MUSCULOSKELETAL: No joint swelling. PSYCHIATRIC: Not anxious. No depression. No suicidal thoughts. No homicidal thoughts. SKIN: Intact. No rash. PHYSICAL EXAMINATION: V/S: Blood pressure 155/92, respiratory rate 20, heart rate 86, temperature 97.9 with saturation 97 on 2 liters. HEENT: Normocephalic, atraumatic. Mucosa . NECK: Supple. No JVD, no carotid bruit. No lymphadenopathy. LUNGS:Decreased and basilar crackles. Mild wheezing. No rales or rhonchi. HEART: S1, S2 normal. No S3. No murmur, gallop or regurgitation. ABDOMEN: Soft, nontender. Bowel sounds active. No rigidity. No rebound or guarding. No CVA tenderness. EXTREMITIES: No cyanosis, clubbing or pedal edema. MUSCULOSKELETAL: No joint swelling. NEUROLOGIC: Awake, alert, oriented times three. No focal deficit. LYMPHATIC: No lymph nodes palpable. SKIN: Intact. LABS: WBC 12.63, hgb 12.7, hct 36.5, plt count 264, sodium 137, potassium 3.9, chloride 104, bicarb 25, BUN 15, creatinine 0.77 and glucose 190. ASSESSMENT: 1. Status post respiratory failure 2. Asthmatic exacerbation secondary to the upper respiratory infection and bronchitis 3. Hypertension uncontrolled 4. Cocaine use and dependancy 5. Sleep apnea on CPAP 6. Osteoarthritis 7. DJD spine PLAN: 1. Continue the Rocephin, DUO NEBS, Solu-Medrol 2. Daily I&O's TIME SPENT: More than 35 minutes MTDD
[2018-05-16] MEDS: SOLU-MEDROL 125 MG IVP SCH (04:05)
[2018-05-16] MEDS: XOPENEX 1.25 MG NEB SCH ×4 (05:52→21:50)
--- NOTE | 2018-05-16 09:08 | PN ---
DATE OF SERVICE: 05/15/18 SUBJECTIVE: The patient was admitted with respiratory failure. The patient is feeling better. Blood pressure is still elevated with no headache or dizziness. Cough and congestion is present. Some difficulty swallowing is present after the extubation. REVIEW OF SYSTEMS: CONSTITUTIONAL: No fever, no chills. HEENT: Normal. ENDOCRINE: No weight gain, no weight loss. CVS: No angina symptoms. No CHF symptoms. No palpitations. No atypical chest pain for CAD. No shortness of breath. No PND, no orthopnea. RESPIRATORY: Cough, no hemoptysis. GI: No nausea, no vomiting. No abdominal pain. : No hematuria. No polyuria. MUSCULOSKELETAL: No joint swelling. PSYCHIATRIC: Not anxious. No depression. No suicidal thoughts. No homicidal thoughts. SKIN: Intact. No rash. PHYSICAL EXAMINATION: V/S: Blood pressure 156/76, respiratory rate 16m, heart rate 86, temperature 97.9 with saturation 97% on 2 liters. HEENT: Normocephalic, atraumatic. Mucosa dry. NECK: Supple. No JVD, no carotid bruit. No lymphadenopathy. LUNGS: Mild basilar crackles. Clear to auscultation. No rales or rhonchi. HEART: S1, S2 normal. No S3. No murmur, gallop or regurgitation. ABDOMEN: Soft, nontender. Bowel sounds active. No rigidity. No rebound or guarding. No CVA tenderness. EXTREMITIES: No cyanosis, clubbing or pedal edema. MUSCULOSKELETAL: No joint swelling. NEUROLOGIC: Awake, alert, oriented times three. No focal deficit. LYMPHATIC: No lymph nodes palpable. SKIN: Intact. LABS: WBC 12.63, hgb 12.7, hct 36.6, plt count 263, sodium 137, potassium 3.9, chloride 104, bicarb 25, BUN 15, creatinine 0.77 and glucose 190. ASSESSMENT: 1. Status post acute respiratory failure 2. Asthmatic exacerbation secondary to the bronchitis 3. Cocaine use and dependance 4. Hypertension uncontrolled 5. Chronic pain syndrome PLAN: 1. Stop the Metoprolol 2. Start the Trandate 100mg three times a day 3. Lovenox for the DVT prophylaxis 4. Solu-Medrol 80 Q 8. 5. Daily I&O's 6. Out of bed to chair activity as tolerated TIME SPENT: More than 35 minutes MTDD
[2018-05-16] MEDS: NORCO 7.5-325 PO SCH ×4 (09:51→21:20)
[2018-05-16] MEDS: KEFLEX PO SCH ×2 (09:52→21:20)
[2018-05-16] MEDS: COZAAR PO SCH (09:52)
[2018-05-16] MEDS: HYDROCHLOROTHIAZIDE PO SCH (09:52)
[2018-05-16] MEDS: MUCINEX PO SCH ×2 (09:52→21:20)
[2018-05-16] MEDS: FLEXERIL PO SCH ×3 (09:52→21:21)
[2018-05-16] MEDS: NORVASC PO SCH (09:52)
[2018-05-16] MEDS: TRANDATE PO SCH ×3 (09:53→21:20)
[2018-05-16] MEDS: LOVENOX SUBCUT SCH (09:53)
[2018-05-16] MEDS: PREDNISONE PO SCH (17:11)
[2018-05-17] MEDS: XOPENEX 1.25 MG NEB SCH ×4 (04:43→22:50)
[2018-05-17] MEDS: KEFLEX PO SCH ×2 (08:32→20:37)
[2018-05-17] MEDS: HYDROCHLOROTHIAZIDE PO SCH (08:33)
[2018-05-17] MEDS: COZAAR PO SCH (08:33)
[2018-05-17] MEDS: TRANDATE PO SCH ×3 (08:33→20:37)
[2018-05-17] MEDS: FLEXERIL PO SCH ×3 (08:33→20:37)
[2018-05-17] MEDS: NORVASC PO SCH (08:33)
[2018-05-17] MEDS: PREDNISONE PO SCH ×2 (08:33→17:10)
[2018-05-17] MEDS: LOVENOX SUBCUT SCH (08:34)
[2018-05-17] MEDS: MUCINEX PO SCH ×2 (08:34→20:37)
[2018-05-17] MEDS: NORCO 7.5-325 PO SCH ×4 (08:34→20:37)
--- NOTE | 2018-05-17 12:26 | DI ---
EXAM: Two views of the chest. History: Short of breath Comparison: Chest radiograph 05/12/2018 Findings: Heart size is normal. No focal consolidation. No appreciable pleural fluid and no pneumo thorax. No acute osseous abnormalities. Impression: No acute cardiopulmonary process
--- NOTE | 2018-05-17 14:06 | PN ---
DATE OF SERVICE: 05/16/18 SUBJECTIVE: Coughing and congestion is better. Blood pressure is still elevated, 140/91. The patient is getting the Trandate 100mg three times a day. REVIEW OF SYSTEMS: CONSTITUTIONAL: No fever, no chills. HEENT: Normal. ENDOCRINE: No weight gain, no weight loss. CVS: No angina symptoms. No CHF symptoms. No palpitations. No atypical chest pain for CAD. No shortness of breath. No PND, no orthopnea. RESPIRATORY: No cough, no hemoptysis. GI: No nausea, no vomiting. No abdominal pain. : No hematuria. No polyuria. MUSCULOSKELETAL: No joint swelling. PSYCHIATRIC: Not anxious. No depression. No suicidal thoughts. No homicidal thoughts. SKIN: Intact. No rash. PHYSICAL EXAMINATION: V/S: Blood pressure 140/91, respiratory rate 20, heart rate 92, temperature 98.0 with saturation 96%. HEENT: Normocephalic, atraumatic. Mucosa dry. Pallor positive. No icterus. NECK: Supple. No JVD, no carotid bruit. No lymphadenopathy. LUNGS: Decreased and basilar crackles. Clear to auscultation. No rales or rhonchi. HEART: S1, S2 normal. No S3. No murmur, gallop or regurgitation. ABDOMEN: Soft, nontender. Bowel sounds active. No rigidity. No rebound or guarding. No CVA tenderness. EXTREMITIES: No cyanosis, clubbing or pedal edema. MUSCULOSKELETAL: No joint swelling. NEUROLOGIC: Awake, alert, oriented times three. No focal deficit. LYMPHATIC: No lymph nodes palpable. SKIN: Intact. LABS: WBC 14.74, hgb 14.5, hct 42.4, plt count 198, sodium 134, potassium 4.0, chloride 98, bicarb 25, BUN 23, creatinine 0.91 and glucose 204. ASSESSMENT: 1. Status post respiratory failure 2. Cocaine use 3. Hypertension, uncontrolled 4. Asthmatic exacerbation secondary to the bronchitis 5. Osteoarthritis 6. DJD spine PLAN: 1. Increase the Trandate to 200mg three times a day 2. Stop the Fluids 3. Out of bed to chair activity as tolerated 4. Continue the Norvasc 5. Keflex 500mg twice a day 6. Lovenox DVT prophylaxis 7. Morphine PRN TIME SPENT: More than 35 minutes MTDD
[2018-05-18] MEDS: XOPENEX 1.25 MG NEB SCH ×2 (04:50→11:12)
[2018-05-18] MEDS: FLEXERIL PO SCH (09:14)
[2018-05-18] MEDS: HYDROCHLOROTHIAZIDE PO SCH (09:14)
[2018-05-18] MEDS: PREDNISONE PO SCH (09:14)
[2018-05-18] MEDS: KEFLEX PO SCH (09:14)
[2018-05-18] MEDS: MUCINEX PO SCH (09:14)
[2018-05-18] MEDS: NORVASC PO SCH (09:14)
[2018-05-18] MEDS: NORCO 7.5-325 PO SCH ×2 (09:15→12:33)
[2018-05-18] MEDS: TRANDATE PO SCH (09:15)
[2018-05-18] MEDS: COZAAR PO SCH (09:15)
[2018-05-18] MEDS: LOVENOX SUBCUT SCH (09:16)
[2018-05-18] MEDS ORDERED: SYMBICORT 160-4.5 MCG INHALER IH SCH (09:30)
[2018-05-18 11:42] VITALS: BP 116/64; TEMP 97.6
--- NOTE | 2018-05-18 15:52 | PN ---
DATE OF SERVICE: 05/17/18 SUBJECTIVE: The patient is still coughing and congested with minimal exertion getting shortness of breath. Blood pressure is much controlled now because of the Trandate 200mg twice a day. REVIEW OF SYSTEMS: CONSTITUTIONAL: No fever, no chills. HEENT: Normal. ENDOCRINE: No weight gain, no weight loss. CVS: No angina symptoms. No CHF symptoms. No palpitations. No atypical chest pain for CAD. No shortness of breath. No PND, no orthopnea. RESPIRATORY: No cough, no hemoptysis. GI: No nausea, no vomiting. No abdominal pain. : No hematuria. No polyuria. MUSCULOSKELETAL: No joint swelling. PSYCHIATRIC: Not anxious. No depression. No suicidal thoughts. No homicidal thoughts. SKIN: Intact. No rash. PHYSICAL EXAMINATION: V/S: blood pressure 128/72, respiratory rate 20, heart rate 86, temperature 98.0 with saturation 97% on 2 liters. HEENT: Normocephalic, atraumatic. Mucosa dry. Pallor positive. No icterus. NECK: Supple. No JVD, no carotid bruit. No lymphadenopathy. LUNGS: Basilar crackles. Clear to auscultation. No rales or rhonchi. HEART: S1, S2 normal. No S3. No murmur, gallop or regurgitation. ABDOMEN: Soft, nontender. Bowel sounds active. No rigidity. No rebound or guarding. No CVA tenderness. EXTREMITIES: No cyanosis, clubbing or pedal edema. MUSCULOSKELETAL: No joint swelling. NEUROLOGIC: Awake, alert, oriented times three. No focal deficit. LYMPHATIC: No lymph nodes palpable. SKIN: Intact. LABS: WBC 15.01, hgb 13.9, hct 42.0, plt count 271, sodium 134, potassium 4.1, chloride 95, bicarb 29, BUN 23, creatinine 0.83 and glucose 127. ASSESSMENT: 1. Status post respiratory failure 2. Cocaine use 3. Uncontrolled hypertension, which is controlled 4. Asthmatic exacerbation 5. Chronic pain syndrome 6. Osteoarthritis 7. DJD spine PLAN: 1. Continue the Trandate 200mg twice a day 2. Out of bed to chair 3. Chest x-ray 4. Activity as tolerated. TIME SPENT: More than 35 minutes MTDD
--- NOTE | 2018-05-22 09:09 | DS ---
DATE OF SERVICE: 05/18/18 FINAL DIAGNOSIS: 1. STATUS POST RESPIRATORY FAILURE 2. ASTHMA EXACERBATION 3. COCAINE USE 4. UNCONTROLLED HYPERTENSIVE URGENCY 5. DYSLIPIDEMIA 6. ARTHRITIS 7. LEFT ROTATOR CUFF INJURY 8. CERVICAL SPINE DEGENERATIVE DISEASE 9. 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 RIGHT MENISCUS TEAR 11. CHRONIC PAIN SYNDROME 12. HISTORY OF COCAINE USE 13. ALCOHOL USE DISCHARGE INSTRUCTIONS: Followup appointment with Dr. Baker on 05/23/18 at 1 p.m. MEDICATIONS AT DISCHARGE: Norvasc Lipitor Vitamin D3 Flexeril Diclofenac Epinephrine p.r.n. Flovent Imitrex Hydrocodone NEW PRESCRIPTIONS: Keflex 500 mg twice a day for four days Prednisone 10 mg twice a day for five days Labetalol 200 mg 1 three times a day for high blood pressure Proventil HFA two puffs q.4 to 6 hr Symbicort two puffs Mucinex 600 mg twice a day STOP THE FOLLOWING MEDICATIONS: Albuterol neb treatments Hydrochlorothiazide Potassium (K-Dur) DIET INSTRUCTIONS: Cardiac and Healthy diet ACTIVITY: As much as tolerated DISEASE SPECIFIC EDUCATION: Counseling on alcohol and cocaine have been discussed; intracranial bleed and stroke discussed. Coronary artery disease discussed. The patient verbalized understanding. HOSPITAL COURSE: This is a 57-year-old male who came to the emergency room with shortness of breath and agonal breathing so we had to intubate the patient in the emergency room. We admitted the patient to the hospital. Urine drug screen was positive for cocaine. The patient was initially given Vasotec and Labetalol IV push for elevated blood pressure. We were able to get the blood pressure better and able to wean the patient off the ventilator by the next day. Solu-Medrol and Rocephin did help the patient. He started having some throat swelling for which lozenges were given. Blood pressure was still high 180/90's. At that time, Metoprolol was stopped and the patient was started on Labetalol 100 mg twice a day then increased to 200 mg twice a day. Hydrochlorothiazide was stopped. Gradually the patient was up and about walking, still short of breath with cough and congestion. Repeat chest x-ray still not showing any pneumonia. Hospital course was lengthy and slow because of the multiple problems and hard to treat blood pressure because of the cocaine use. The patient was counseled almost every day about the cocaine use and offer for rehabilitation. He did promise that he would not do this and did not want to go to rehab center at this time. SPECIFIC ORDERS: 1. Use oxygen at 2L nasal cannula as needed. TIME SPENT: MORE THAN 65 MINUTES MTDGriselda
== END 2018-05-18 15:34 | disposition home or self-care (01) | DRG 204 ==
LOC: ED 01:16 → SCU 03:17
PROVIDERS: ADMIT Emergency Medicine; ATTEND Emergency Medicine
DX: R06.02 Shortness of breath (principal); J96.90 Respiratory failure, unspecified, unspecified whether with hypoxia or hypercapnia; I63.9 Cerebral infarction, unspecified; F14.90 Cocaine use, unspecified, uncomplicated; I10 Essential (primary) hypertension; E78.5 Hyperlipidemia, unspecified; J44.9 Chronic obstructive pulmonary disease, unspecified; F41.8 Other specified anxiety disorders; G89.4 Chronic pain syndrome; M19.90 Unspecified osteoarthritis, unspecified site; M54.9 Dorsalgia, unspecified; M47.9 Spondylosis, unspecified; M23.209 Derangement of unspecified meniscus due to old tear or injury, unspecified knee; M25.50 Pain in unspecified joint; S46.002D Unspecified injury of muscle(s) and tendon(s) of the rotator cuff of left shoulder, subsequent encounter; Z72.0 Tobacco use; Z71.41 Alcohol abuse counseling and surveillance of alcoholic
CPT/HCPCS: 31500; 36415; 80053; 80306; 81001; 82550; 82553; 82803; 83880; 84484; 85025; 87081; 93005; 93010; 94002; 94640; 94644; 96361; 96365; 96366; 96375; 99291

== ENCOUNTER 2019-02-25 11:25 | Outpatient (CLI) ==
[2013-05-24 11:45] VITALS: TEMP 98.1
--- NOTE | 2019-02-25 14:14 | DI ---
EXAM: Lumbar spine three view HISTORY: Disc degeneration COMPARISON: 05/16/2010 TECHNIQUE: Three views lumbar spine were performed FINDINGS: Sacroiliac joints intact. Sacral arcuate intact. Vertebral bodies normal height. No fra cture. Intervertebral disc spaces maintained. Small multilevel marginal osteophyte formation. Mult ilevel facet arthrosis. 2 mm retrolisthesis of L3 on L4 and 2 mm anterolisthesis of L4 on L5. IMPRESSION: Chronic discogenic degenerative disease and facet arthrosis.
--- NOTE | 2019-02-25 14:14 | DI ---
EXAM: CERVICAL SPINE, 3 VIEWS HISTORY: Spinal stenosis. FINDINGS: Cervical spine open mouth, frontal and lateral views. Frontal view reveals no scoliosis . The lateral masses of C1-C2 are normally aligned. The odontoid process is grossly unremarkable. Lateral views demonstrate no spondylolisthesis, disc space abnormality or loss of vertebral body hei ght. Facet joints are normally covered. No fractures are seen. Prevertebral soft tissues are with in normal limits. IMPRESSION: Unremarkable study.
--- NOTE | 2019-02-25 18:13 | MRI ---
EXAM: Cervical spine MRI without contrast. HISTORY: Spinal stenosis. COMPARISON: Cervical spine radiographs 02/25/2099 cervical spine MRI 06/14/2017. TECHNIQUE: Multiplanar, multisequence MR images were acquired of the cervical spine without contrast . The study is degraded by decreased [id number]. FINDINGS: There is a normal variant mirela cisterna magna. The cervical cord has no abnormal T2 hyper intensities. The cervical vertebra are normal in height, AP alignment and intrinsic bone marrow sign al. Canal diameter is developmentally narrow. There is ventral spondylosis at C5-6 and desiccation of the cervical intervertebral discs. There are no paravertebral masses. Visualized lung apices are clear. C2-3: There is a mild posterior disc osteophyte complex that is asymmetric to the right with mild ri ght discogenic endplate irregularity and type 1 endplate changes. Right uncovertebral hypertrophy is present and there is right lateral recess stenosis and moderately severe right neural foraminal sten osis. AP diameter thecal sac 9.8 mm. C3-4: There is a mild posterior disc osteophyte complex with a small to moderate broad-based central disc protrusion that effaces the ventral thecal sac. Bilateral uncovertebral hypertrophy is present , greater on the left and there is mild spinal stenosis and moderate bilateral foraminal stenosis, gr eater on the right. AP diameter of the thecal sac is 9 mm. C4-5: There is a mild posterior disc osteophyte complex with the disc component larger than the oste ophyte component versus a small superimposed central disc protrusion. Bilateral uncovertebral hypert rophy is present and there is mild bilateral foraminal stenosis. C5-6: There is a mild diffuse spondylotic disc bulge with endplate osteophytes and a small superimpo sed central disc protrusion. This contacts the ventral cord. The sagittal sections which is not see n on the axial images. Minor right uncovertebral hypertrophy is present. There is no central canal stenosis or significant foraminal stenosis. C6-7: There is a mild disc bulge which minimally effaces the ventral thecal sac without central jimmie l stenosis. There is mild left neural foraminal stenosis. C7-T1: There is a minor disc bulge, minor bilateral uncovertebral hypertrophy and mild right hypertr ophic facet arthropathy. There is mild bilateral foraminal stenosis. IMPRESSION: 1. Mild to moderate cervical degenerative spondylosis. 2. Mild disc osteophyte complex C2-3 that is asymmetric to the right with mild right discogenic endp late irregularity and type 1 endplate change suggestive of increased stress at this level. 3. Mild discogenic disease C3-4 with small to moderate broad-based central disc protrusion and mild spinal stenosis. 4. Mild disc bulge and small central disc protrusions C5-6 which contacts the ventral cord without e liliam. 5. Multilevel foraminal stenosis most significant in the upper cervical spine where there is moderat devyn severe right C2-3 and moderate bilateral C3-4 neural foraminal stenosis.
== END 2019-02-25 11:26 | disposition home or self-care (01) ==
LOC: RAD 11:25
PROVIDERS: ATTEND Pain Medicine Interventional Pain Medicine
DX: M51.16 Intervertebral disc disorders with radiculopathy, lumbar region (principal); M51.17 Intervertebral disc disorders with radiculopathy, lumbosacral region; M48.061 Spinal stenosis, lumbar region without neurogenic claudication; M51.36 Other intervertebral disc degeneration, lumbar region; M51.37 Other intervertebral disc degeneration, lumbosacral region; M47.816 Spondylosis without myelopathy or radiculopathy, lumbar region; M47.817 Spondylosis without myelopathy or radiculopathy, lumbosacral region; M54.12 Radiculopathy, cervical region; M48.02 Spinal stenosis, cervical region; M47.812 Spondylosis without myelopathy or radiculopathy, cervical region

== ENCOUNTER 2019-02-26 09:24 | Outpatient (CLI) ==
[2013-05-24 11:45] VITALS: TEMP 98.1
--- NOTE | 2019-02-26 21:19 | MRI ---
EXAM: Lumbar spine MRI without contrast. HISTORY: Lumbar degenerative disc disease. COMPARISON: Lumbar spine radiographs 02/25/2019 and lumbar spine MRI 01/06/2016. TECHNIQUE: Multiplanar, multisequence MR images were acquired lumbar spine without contrast. FINDINGS: Five non-rib bearing lumbar vertebra are present. Conus medullaris ends at L1 has normal morphology, signal intensity. There is epidural lipomatosis and the thecal sac ends high and L4-5. There is minor lumbar levoscoliosis centered at L3-4 and there is 2.8 mm anterolisthesis of L4 on L5 and 2 mm retrolisthesis of L5 on S1. There is minor chronic loss of height of the L3 vertebra and mi ld chronic loss of height of L4 and L5. Biconcave endplates are present from L1-2 to L4-5. There is central disc desiccation at L3-4 and L4-5. At L4-5, there are biconcave endplates and there is mode rate broad-based type 2 signal along the posterior superior L5 endplate. There is mild disc space na rrowing and disc desiccation at L5-S1 where there is minor endplate irregularity. The partially visualized liver, spleen and kidneys are unremarkable. A few descending colonic divert icula are noted without diverticulitis. T12-L1: The intervertebral disc is normal. L1-2: The intervertebral disc is normal. There is mild left hypertrophic facet arthropathy and mild bilateral ligamentum flavum hypertrophy which causes minor left foraminal stenosis. There is no mario tral canal stenosis. L2-3: There is a minor spondylotic disc bulge and mild right and mild to moderate left hypertrophic facet arthropathy and ligamentum flavum hypertrophy. There is no central canal stenosis or foraminal stenosis. L3-4: There is a mild disc bulge and mild to moderate right and mild left hypertrophic facet arthrop athy and mild bilateral ligamentum flavum hypertrophy. Small left and tiny right facet effusions are present. There is mild bilateral foraminal stenosis, greater on the left. There is no central jimmie l stenosis. L4-5: There is no change in the anterolisthesis of L4 on L5 and there is a mild diffuse disc bulge a nd moderately severe bilateral hypertrophic facet arthropathy and ligamentum flavum hypertrophy with moderate bilateral facet effusions. Small synovial cysts are present along the posterior inferior ma rgins of both facet joints and there is mild bright STIR signal edema in and around the left facet tin int that may be due to increased stress at this level. No cortical destruction is present to suggest infection. There is dorsal epidural lipomatosis and tapering of the thecal sac which ends at L5. A t this level, the thecal sac is moderately small and measures 5.8 mm in AP diameter. There is mild t o moderate right and moderate left neural foraminal stenosis. L5-S1: There is a minor spondylotic disc bulge with endplate osteophytes. The thecal sac ends at th e mid L5 level and there is moderate bilateral hypertrophic facet arthropathy and ligamentum flavum h ypertrophy. Small synovial cysts are present posterior to the left facet joint and there a few degen erative cysts along the articular surface of the right facet joint. There is mild left neural forami nal stenosis and minor stenosis at the entry to the right neural foramen. IMPRESSION: 1. No significant change mild lumbar degenerative spondylosis and moderate to severe lower lumbar hy pertrophic facet arthropathy which causes 2.8 mm degenerative anterolisthesis of L4 on L5. 2. Mild to moderate right and moderate left L4-5 neural foraminal stenosis. 3. No lumbar disc herniations.
== END 2019-02-26 09:25 | disposition home or self-care (01) ==
LOC: RAD 09:24
PROVIDERS: ATTEND Pain Medicine Interventional Pain Medicine
DX: M51.16 Intervertebral disc disorders with radiculopathy, lumbar region (principal); M51.17 Intervertebral disc disorders with radiculopathy, lumbosacral region; M48.061 Spinal stenosis, lumbar region without neurogenic claudication; M51.36 Other intervertebral disc degeneration, lumbar region; M51.37 Other intervertebral disc degeneration, lumbosacral region; M47.816 Spondylosis without myelopathy or radiculopathy, lumbar region; M47.817 Spondylosis without myelopathy or radiculopathy, lumbosacral region; M54.12 Radiculopathy, cervical region; M48.02 Spinal stenosis, cervical region; M47.812 Spondylosis without myelopathy or radiculopathy, cervical region